=== PATIENT | female | born 1970 | race Two or more races ===

== ENCOUNTER 2020-01-14 08:20 | Outpatient (REF) | payer MEDICAID, SELFPAY | END 2020-01-14 08:21 | disposition home or self-care (01) | LOC: HO.LAB 08:20 | PROVIDERS: Visit Provider Internal Medicine | DX: Z20.828 Contact with and (suspected) exposure to other viral communicable diseases (principal) | CPT/HCPCS: C9803; U0003 ==

== ENCOUNTER 2020-05-30 09:03 | Outpatient (REF) | payer MEDICAID, SELFPAY ==
--- NOTE | ~2020-05-30 | MM_ITS ---
EXAMINATION: MM SCREENING DIGITAL BREAST TOMOSYNTHESIS, BILATERAL CLINICAL INFORMATION: Screening. Asymptomatic. The lifetime risk of breast cancer based on the Tyrer-Cuzick Model is 6%. COMPARISON: Mammography: 08/18/2018, 08/03/2017, 07/15/2016, 02/25/2015 TECHNIQUE: Digital breast tomosynthesis is performed in both the craniocaudal and mediolateral oblique views along with computer-aided detection (CAD). Synthesized 2D images are generated from the tomosynthesis. FINDINGS: The breasts are heterogeneously dense, which may obscure small masses (ACR BI-RADS breast composition Category c). There is no developing density or interval mass or architectural abnormality. Parenchymal pattern is similar to prior exam. The axilla and skin contours are unremarkable. Right breast shows no abnormal calcifications. Left breast has some new punctate calcifications upper outer periareolar, possibly with some associated digital processing artifact. Patient will be recalled for additional imaging. MM/MM tomosynthesis screening BI IMPRESSION: 1. Left: New punctate calcifications upper outer periareolar, possibly with some associated digital processing artifact. 2. Right: No mammographic evidence of malignancy. ASSESSMENT: BI-RADS 0: Incomplete - Need Additional Imaging Evaluation RECOMMENDATION: 1. Additional views of the left breast (magnification CC, magnification ML). 2. Radiology department staff will contact the patient for additional imaging. This patient's information was entered into a reminder system with a target due date for their next mammogram.
== END 2020-05-30 09:04 | disposition home or self-care (01) ==
LOC: HO.MAMMO 09:03
PROVIDERS: PCP Nurse Practitioner Family; Visit Provider Nurse Practitioner Family
DX: Z12.31 Encounter for screening mammogram for malignant neoplasm of breast (principal)
CPT/HCPCS: 77063; 77067

== ENCOUNTER 2020-06-16 10:50 | Outpatient (REF) | payer MEDICAID, SELFPAY ==
--- NOTE | ~2020-06-16 | MM_ITS ---
EXAMINATION: MM DIAGNOSTIC DIGITAL MAMMOGRAPHY, LEFT CLINICAL INFORMATION: Recall from screening for calcifications periareolar upper outer left breast possibly with some associated digital processing artifact. COMPARISON: Mammography: 08/18/2018, 08/03/2017, 07/15/2016, 06/30/2016, 02/25/2015 TECHNIQUE: Digital mammography is performed in the following views: Magnification CC x2, magnification ML x2. FINDINGS: The breasts are heterogeneously dense, which may obscure small masses (ACR BI-RADS breast composition Category c). There are fine calcifications superficial periareolar upper outer left breast. There is suggestion of layering on the ML views. In retrospect, the calcifications are likely without significant change from prior exam 2018 and new from 2D mammography 2015. Results are discussed with the patient at time of visit. Management plan is for short interval six-month follow-up left mammography to include magnification views. MM/MM added views LT IMPRESSION: Calcifications superficial periareolar left breast with suggestion of some layering on the ML view. ASSESSMENT: BI-RADS 3: Probably Benign RECOMMENDATION: Diagnostic left mammography in 6 months. This patient's information was entered into a reminder system with a target due date for their next mammogram.
== END 2020-06-16 10:51 | disposition home or self-care (01) ==
LOC: HO.MAMMO 10:50
PROVIDERS: Visit Provider Nurse Practitioner Family
DX: R92.1 Mammographic calcification found on diagnostic imaging of breast (principal)
CPT/HCPCS: 77065

== ENCOUNTER 2020-12-17 12:47 | Outpatient (REF) | payer MEDICAID, SELFPAY ==
--- NOTE | ~2020-12-17 | MM_ITS ---
EXAMINATION: MM DIAGNOSTIC DIGITAL BREAST TOMOSYNTHESIS, LEFT CLINICAL INFORMATION: Six-month follow-up calcifications. COMPARISON: Mammography: 06/16/2020 and studies dating back to 01/16/2014. TECHNIQUE: Digital breast tomosynthesis is performed in both the craniocaudal and mediolateral oblique views along with computer-aided detection (CAD). Synthesized 2D images are generated from the tomosynthesis. Spot magnification views of the left breast performed in craniocaudal and 90 degree mediolateral views. FINDINGS: The breasts are extremely dense, which lowers the sensitivity of mammography (ACR BI-RADS breast composition Category d). There is a stable appearance of the grouping of calcifications about the anterior aspect of the left breast. No new suspicious abnormal dominant mass identified. No new more suspicious grouping of microcalcifications seen. Recommend 6-month bilateral mammography with magnification views of the left breast. Results are provided to the patient at time of visit by the technologist. MM/MM tomosynthesis diagnostic LT IMPRESSION: There are no significant changes from prior study. ASSESSMENT: BI-RADS 3: Probably Benign. RECOMMENDATION: Diagnostic mammography in 6 months. This patient's information was entered into a reminder system with a target due date for their next mammogram.
== END 2020-12-17 12:48 | disposition home or self-care (01) ==
LOC: HO.MAMMO 12:47
PROVIDERS: Visit Provider Nurse Practitioner Family
DX: R92.1 Mammographic calcification found on diagnostic imaging of breast (principal)
CPT/HCPCS: 77061; 77065

== ENCOUNTER 2021-06-29 14:47 | Outpatient (REF) | payer MEDICAID, SELFPAY ==
--- NOTE | ~2021-06-29 | MM_ITS ---
EXAMINATION: MM DIAGNOSTIC DIGITAL BREAST TOMOSYNTHESIS, BILATERAL CLINICAL INFORMATION: Probable benign periareolar left breast calcifications for follow-up surveillance. Due for yearly. The lifetime risk of breast cancer based on the Tyrer-Cuzick Model is 7%. COMPARISON: Mammography: 12/17/2020, 06/16/2020, 05/30/2020 (BI-RADS 0), 08/18/2018. TECHNIQUE: Digital breast tomosynthesis is performed in both the craniocaudal and mediolateral oblique views along with computer-aided detection (CAD). Synthesized 2D images are generated from the tomosynthesis. Additional magnification CC and magnification ML views are provided. FINDINGS: The breasts are heterogeneously dense, which may obscure small masses (ACR BI-RADS breast composition Category c). There is no developing density or interval mass or architectural abnormality. The axilla and skin contours are unremarkable. No suspicious calcifications on the right. Additional magnification views show loosely grouped calcifications anterior left breast, some possibly vascular. They appear stable to decreased in number. There are no increasing calcifications or ductal distribution. Preliminary results are provided to the patient at time of visit by the technologist. MM/MM tomosynthesis diagnostic BI IMPRESSION: Left: -Left breast calcifications stable to decreased from prior diagnostic exam. Right: -No mammographic evidence of malignancy. ASSESSMENT: BI-RADS 3: Probably Benign RECOMMENDATION: Diagnostic left mammography in 6 months. This patient's information was entered into a reminder system with a target due date for their next mammogram.
== END 2021-06-29 14:48 | disposition home or self-care (01) ==
LOC: HO.MAMMO 14:47
PROVIDERS: PCP Nurse Practitioner Family; Visit Provider Nurse Practitioner Family
DX: R92.1 Mammographic calcification found on diagnostic imaging of breast (principal)
CPT/HCPCS: 77062; 77066

== ENCOUNTER 2021-07-09 09:04 | Outpatient (REF) | payer MEDICAID, SELFPAY ==
--- NOTE | ~2021-07-09 | MM_ITS ---
EXAMINATION: STEREOTACTIC TOMOSYNTHESIS-GUIDED VACUUM-ASSISTED BREAST BIOPSY, LEFT SPECIMEN RADIOGRAPH, LEFT POST PROCEDURE DIGITAL MAMMOGRAM, LEFT CLINICAL INFORMATION: Calcifications 2:30 periareolar outer left breast for tissue sampling. COMPARISON: Mammography 06/29/2021, 12/17/2020. TECHNIQUE/PROCEDURE: Informed consent was obtained from the patient after discussion of the benefits, risks, and alternatives to biopsy today. Patient appeared to understand. Gave opportunity for questions. Patient signed consent form. BIOPSY TABLE: [employer] Aff[employer]one Biopsy System. LESION: Loosely grouped punctate calcifications 2:30 periareolar left breast. LOCAL ANESTHESIA: 10 mL carbonated 1% lidocaine; 10 mL 1% lidocaine with epinephrine. DERMATOTOMY: Single skin ketty dermatotomy performed. NEEDLE: Vozeemeiva 9-gauge vacuum assisted core biopsy device. APPROACH: Craniocaudal. TARGETING: Combination of digital breast tomosynthesis and stereotactic digital mammography used for targeting. CORES: 13. CLIP: Open [employer] T-shaped marker. SPECIMEN RADIOGRAPH: Specimen radiograph is taken in separate room using digital mammography. The index calcifications are in the excised cores. There are at least 7 calcifications in the cores. POST PROCEDURE UNILATERAL DIGITAL MAMMOGRAM: The post biopsy mammogram is performed in separate room using separate digital mammography equipment from the biopsy procedure. CC and ML views are obtained. The breasts are heterogeneously dense, which may obscure small masses (breast composition category: c). The clip marker is in position. The calcifications are decreased at the biopsy site consistent with the sampling. No gross hematoma. The patient tolerated the procedure well. No immediate complications. Home instructions reviewed with the patient. Final pathology results are pending. MM/MM stereotactic biopsy LT IMPRESSION: 1. Digital tomosynthesis-guided core biopsy left breast with clip placement. 2. Specimen radiograph taken and post procedure mammogram. There is satisfactory positioning of the biopsy clip. 3. Final pathology results pending. An addendum report will be issued.
[2021-07-09] MEDS: Sodium Bicarbonate 8.4% 50 MEQ/50 ML VIAL SUBCUT (10:56)
[2021-07-09] MEDS: Lidocaine HCl 1 % 20 ML VIAL 9 ML SUBCUT (11:01)
== END 2021-07-09 09:05 | disposition home or self-care (01) ==
LOC: HO.MAMMO 09:04
PROVIDERS: PCP Nurse Practitioner Family; Visit Provider Surgery
DX: R92.8 Other abnormal and inconclusive findings on diagnostic imaging of breast (principal)
CPT/HCPCS: 19081; 88305; 99202; A4648

== ENCOUNTER → 2021-07-14 09:12 | Outpatient (BNVA) | payer MEDICAID, SELFPAY | PROVIDERS: PCP Nurse Practitioner Family; Visit Provider Surgery | DX: R92.8 Other abnormal and inconclusive findings on diagnostic imaging of breast (principal) | CPT/HCPCS: 99212 ==

== ENCOUNTER 2022-08-05 09:59 | Outpatient (REF) | payer OTHER, SELFPAY ==
--- NOTE | ~2022-08-05 | MM_ITS ---
EXAMINATION: MM SCREENING DIGITAL BREAST TOMOSYNTHESIS, BILATERAL CLINICAL INFORMATION: Screening. Asymptomatic. The lifetime risk of breast cancer based on the Tyrer-Cuzick Model is 6.1%. COMPARISON: Mammography: This study is compared with multiple prior mammograms dating back to May 2020. TECHNIQUE: Digital breast tomosynthesis is performed in both the craniocaudal and mediolateral oblique views along with computer-aided detection (CAD). Synthesized 2D images are generated from the tomosynthesis. FINDINGS: The breasts are heterogeneously dense, which may obscure small masses (ACR BI-RADS breast composition Category c). There are no significant masses, abnormal calcifications, or other abnormalities. There is a tissue marker in the periareolar region of the left breast from prior benign percutaneous biopsy of grouped calcifications. MM/MM tomosynthesis screening BI IMPRESSION: No mammographic evidence of malignancy. ASSESSMENT: BI-RADS BI-RADS 2 - Benign Findings RECOMMENDATION: Routine annual mammography screening. 1 year F/U This patient's information was entered into a reminder system with a target due date for their next mammogram.
== END 2022-08-05 10:00 | disposition home or self-care (01) ==
LOC: HO.MAMMO 09:59
PROVIDERS: PCP Nurse Practitioner Family; Visit Provider Nurse Practitioner Family
DX: Z12.31 Encounter for screening mammogram for malignant neoplasm of breast (principal)
CPT/HCPCS: 77063; 77067

== ENCOUNTER → 2022-08-05 10:15 | Outpatient (BNV) | payer OTHER, SELFPAY | PROVIDERS: PCP Nurse Practitioner Family; Visit Provider Radiology Diagnostic Radiology | DX: Z12.31 Encounter for screening mammogram for malignant neoplasm of breast (principal) | CPT/HCPCS: 77063; 77067 ==

== ENCOUNTER 2023-01-20 11:58 | Emergency (ER) | payer OTHER, SELFPAY ==
[2023-01-20 12:11] VITALS: BP 156/80; PULSE 98; RESP 20; TEMP 36.9; O2SAT 99; BMI 32.9
--- NOTE | 2023-01-20 12:11 | ED.GENADULT ---
HPI - General Adult General Chief complaint: Upper Respiratory Symptoms Stated complaint: Fever, headache, chills Time Seen by Provider: 01/20/23 15:05 History of Present Illness HPI narrative: Patient is a 53-year-old female with history of asthma and SHANNA presenting to the ED with complaint of chills, body aches, congestion since yesterday. Had to call out of work due to symptoms. Low grade temps (99). Denies any abdominal pain, nausea, vomiting, or diarrhea. MD complaint: chills, body aches Onset (ago): day(s) Severity: moderate Quality: aching Pain Consistency: constant Associated symptoms: fever/chills and malaise Treatments prior to arrival: none Related Data Home Medications Medication Instructions Recorded Confirmed albuterol sulfate 90 mcg/actuation 2 puff inhalation TID 07/09/21 07/14/21 aerosol inhaler (ProAir HFA) famotidine 20 mg tablet 20 mg PO BID 07/09/21 07/09/21 fluticasone propionate 110 1 puff PO BID 07/09/21 07/09/21 mcg/actuation HFA aerosol inhaler (Flovent HFA) ibuprofen 800 mg tablet 800 mg PO TID 07/09/21 07/09/21 Previous Rx's Medication Instructions Recorded nirmatrelvir 300 mg (150 mg See Rx Instructions PO .COMPLEX 01/20/23 x2)-ritonavir 100 mg tablet,dose #30 ea pack (Paxlovid) Allergies Allergy/AdvReac Type Severity Reaction Status Date / Time No Known Allergies Allergy Unverified 07/09/21 08:40 Review of Systems Review of Systems: As per HPI. Yes all other systems are reviewed and are negative Constitutional: Constitutional: Reports as per HPI [facility] Past Medical History Surgical History History of 3 sections Social History Social History Alcohol intake: current Patient Tobacco Use Status: Current everyday Tobacco user Physical Exam ED Vital Signs: Vital Signs - 24 hr 01/20/23 12:11 Temperature 98.4 F Pulse Rate 98 Respiratory Rate 20 Blood Pressure 156/80 H Pulse Oximetry 99 Oxygen Delivery Method Room Air BMI result Body Mass Index 32.9 Vital signs have been reviewed and appear to be correct. Blood pressure elevated. Heart rate normal. Respiratory rate normal. Temperature normal. Oxygen saturation normal. Const General: cooperative, healthy appearing and no acute distress Orientation/consciousness: oriented to person, oriented to place, oriented to time and patient oriented x3 Limitations: no limitations HENMT Head: Yes normocephalic and Yes atraumatic Ears: external ears normal General nose exam: Normal external nose present Face and sinus: Yes face symmetric Mouth: oropharynx normal and moist mucous membranes Throat: Yes uvula midline Eyes Pupils: Equal, round and reactive pupils present Neck Neck: Yes normal visual inspection and Yes supple Resp Effort & Inspection: normal respiratory effort and able to speak in complete sentences Auscultation: clear to auscultation bilaterally Cardio Rate: regular rate Rhythm: regular rhythm Heart sounds: S1 normal heart sound present and S2 normal heart sound present GI Palpation (GI): Soft to palpation and nontender Auscultation: normoactive bowel sounds General: Yes no CVA tenderness Back/Spine/Pelvis Back: no CVA tenderness Skin General skin exam: elasticity normal and turgor normal Neuro General: oriented to person, oriented to place, oriented to time, patient oriented x3, moves all extremities, no focal motor deficits and CN's II-XI intact bilaterally Cranial nerves: Yes Equal, round and reactive pupils present Cognition (Neuro): normal cognition Extrem General: Yes full ROM, Yes no pedal edema and Yes no calf tenderness Psych Mental Status: mental status grossly normal Affect: normal affect Thought process: Normal thought process present Medical Decision Making Medical Decision Making MDM Narrative: Patient is a 53-year-old female with history of asthma and SHANNA presenting to the ED with complaint of chills, body aches, congestion since yesterday. On exam patient is awake, A+Ox3, VS WNL, afebrile, normal neurological exam without focal deficits, physical exam findings as above. Given reported symptoms and physical exam findings, initial differential includes viral illness, covid, flu. Covid swab positive, patient updated on results. Patient offered treatment with Paxlovid which patient is agreeable to. Discussed adverse effects with patient. Advised patient to ensure adequate rest and fluid intake, alternate Tylenol and ibuprofen. Instructed patient to follow up with PCP. Return precautions discussed. Patient verbalized understanding of and agreement with plan. Differential Diagnosis Differential Diagnoses: The differential diagnosis associated with the presentation includes As per [facility] Lab Data [facility] Lab Attestation statement: I reviewed the patient's lab results. Positive Covid Labs: Lab Results 01/20/23 Range/Units 14:15 COVID-19 (YANICK) Positive A (Negative) COVID-19 Clin Com See Note Influenza Type A (ANAYELI) Negative (Negative) Influenza Type B (ANAYELI) Negative (Negative) Influenza A & B Note See Note External Record Review External record reviewed: Inpatient record, Office record and Outpatient record Prescription Management I considered prescription management with: Antiviral Discharge Plan Discharge Clinical Impression: COVID-19 Patient Disposition: Home, Self-Care Instructions: Covid-19 Viral Syndrome and Novel Coronavirus (ED) Hey/Ath, COVID-19 (Coronavirus Disease 2019) (ED) Additional Instructions: You were evaluated in the emergency department today for body aches, fever. Your COVID test was resulted as positive. You should continue to isolate at home for another 4 days. You should continue to wear mask for 5 days after that. You are being treated with Paxlovid which may cause nausea and vomiting. Be sure to get plenty of rest and drink plenty of fluids. Return to the emergency department with worsening shortness of breath, chest pain, fever that does not improve with Tylenol or ibuprofen, persistent vomiting, or any other concerning symptoms. You should follow-up with your primary care provider. Prescriptions: New Paxlovid 300 mg (150 mg x 2)-100 mg tablets,dose pack See Rx Instructions .ROUTE .COMPLEX Qty: 30 0RF Rx Instructions: take TWO 150 mg tablets of nirmatrelvir with ONE 100 mg tablet of ritonavir twice daily for 5 days No Action albuterol sulfate [ProAir HFA] 90 mcg/actuation HFA aerosol inhaler 2 puff inhalation TID ibuprofen 800 mg tablet 800 mg PO TID Flovent HFA 110 mcg/actuation HFA aerosol inhaler 1 puff PO BID famotidine 20 mg tablet 20 mg PO BID Stand Alone Forms: Work/School Release
[2023-01-20 14:39] LABS: COVID-19 Test Positive (Negative); IDNOW Serial# 08D9AD1C
[2023-01-20 14:47] LABS: IDNOW Serial# 9DB6401D; Influenza A Negative (Negative); Influenza B2 Negative (Negative)
== END 2023-01-20 15:14 | disposition home or self-care (01) ==
PROVIDERS: Registered Nurse Emergency; Emergency Provider Student in an Organized Health Care Education/Training Program; PCP Nurse Practitioner Family
DX: R50.9 Fever, unspecified (principal); Z79.899 Other long term (current) drug therapy; Z11.52 Encounter for screening for COVID-19; Z20.822 Contact with and (suspected) exposure to COVID-19
CPT/HCPCS: 87502; 87635; 99282; 99283

== ENCOUNTER 2023-05-18 13:26 | Emergency (ER) | payer OTHER, SELFPAY ==
--- NOTE | ~2023-05-18 | CT_ITS ---
EXAMINATION: CT ABDOMEN AND PELVIS WITHOUT CONTRAST CLINICAL INFORMATION: Right flank pain. Query stone. COMPARISON: None available. TECHNIQUE: Multidetector volumetric imaging was performed from the superior aspect of the liver through the pubic symphysis. Sagittal and coronal reformatted images were obtained on the technologist's workstation. This CT examination was performed using dose optimization techniques as appropriate, variously including the following: *Automated exposure control *Adjustment of mA and/or kV according to patient size (this includes techniques or standardized protocols for targeted exams where dose is matched to indication/reason for exam; i.e. extremities or head) *Use of iterative reconstruction technique DLP: 409 mGy-cm FINDINGS: LUNG BASES: The visualized lung bases are unremarkable. LIVER, GALLBLADDER, AND BILIARY TREE: The liver is normal in size, shape, and attenuation. No focal hepatic lesion or biliary ductal dilatation is present. The gallbladder is unremarkable with no evidence of radiopaque gallstones, gallbladder wall thickening, or obvious pericholecystic inflammatory changes. PANCREAS: Unremarkable. SPLEEN: Unremarkable. ADRENAL GLANDS: Unremarkable. KIDNEYS AND URETERS: The kidneys are normal in size, shape, and attenuation. No hydronephrosis, hydroureter, or calculi seen. No perinephric stranding. BLADDER: Unremarkable. GASTROINTESTINAL TRACT: The small bowel and colon are normal in caliber. There is no pericolonic inflammatory stranding. The appendix is normal in appearance. There is no free fluid within the abdomen or pelvis. ABDOMINAL WALL: There is a small fat-containing umbilical hernia. LYMPH NODES: No lymphadenopathy. VASCULAR: No abdominal aortic aneurysm. PELVIC VISCERA: Unremarkable. No adnexal mass. OSSEOUS STRUCTURES: There is 3.6 mm of anterolisthesis of L5 in relation to S1 secondary to bilateral pars defects at L5. Vertebral body heights are maintained. CT/CT abdomen pelvis wo IV con IMPRESSION: The kidneys are normal in size, shape, and attenuation. No hydronephrosis, hydroureter, or calculi seen. No perinephric stranding. The appendix is normal in appearance. Fleischner guidelines were followed.
--- NOTE | ~2023-05-18 | XR_ITS ---
EXAMINATION: CR Xr Thoracic Spine 2v CR Xr Lumbar Spine 2-3v CLINICAL INFORMATION: right paraspinal pain COMPARISON: Chest radiograph 02/06/2017 TECHNIQUE: AP, lateral and swimmer's view of the thoracic spine, 3 images. AP, lateral and lumbosacral views of the lumbar spine, 3 images. FINDINGS: Thoracic spine: Mild degenerative disc disease in the thoracic spine is characterized by endplate osteophytes and mild loss of intervertebral disc heights. Vertebral body heights are normal. No fracture or spondylolisthesis. Paraspinal soft tissues are normal. Lumbar spine: Grade 1 anterolisthesis of L5 on S1 with bilateral L5 pars defects. Mild L5-S1 degenerative disc disease with subchondral sclerosis, osteophytosis and intervertebral disc height loss. Otherwise, disc heights are maintained. Vertebral body heights are normal. Bone mineralization is normal. Soft tissues are unremarkable. Imaged portions of the sacroiliac joints are normal. XR/XR thoracic spine 2V IMPRESSION: 1. Grade 1 anterolisthesis of L5 on S1 with bilateral L5 pars defects. 2. Mild L5-S1 degenerative disc disease. 3. No acute fracture or malalignment of the thoracic spine.
--- NOTE | ~2023-05-18 | XR_ITS ---
EXAMINATION: CR Xr Thoracic Spine 2v CR Xr Lumbar Spine 2-3v CLINICAL INFORMATION: right paraspinal pain COMPARISON: Chest radiograph 02/06/2017 TECHNIQUE: AP, lateral and swimmer's view of the thoracic spine, 3 images. AP, lateral and lumbosacral views of the lumbar spine, 3 images. FINDINGS: Thoracic spine: Mild degenerative disc disease in the thoracic spine is characterized by endplate osteophytes and mild loss of intervertebral disc heights. Vertebral body heights are normal. No fracture or spondylolisthesis. Paraspinal soft tissues are normal. Lumbar spine: Grade 1 anterolisthesis of L5 on S1 with bilateral L5 pars defects. Mild L5-S1 degenerative disc disease with subchondral sclerosis, osteophytosis and intervertebral disc height loss. Otherwise, disc heights are maintained. Vertebral body heights are normal. Bone mineralization is normal. Soft tissues are unremarkable. Imaged portions of the sacroiliac joints are normal. XR/XR lumbar spine 2-3V IMPRESSION: 1. Grade 1 anterolisthesis of L5 on S1 with bilateral L5 pars defects. 2. Mild L5-S1 degenerative disc disease. 3. No acute fracture or malalignment of the thoracic spine.
[2023-05-18 14:35] VITALS: BP 191/102; PULSE 83; RESP 18; TEMP 36.9; O2SAT 98; BMI 32.5
--- NOTE | 2023-05-18 14:36 | ED.GENADULT ---
HPI - General Adult General Chief complaint: Back Pain/Injury Stated complaint: back pain Time Seen by Provider: 05/19/23 00:24 History of Present Illness HPI narrative: 53-year-old female who presents emergency department for evaluation of right midthoracic back pain. The patient states that 2 days prior she lifted her grandson in the afternoon and may have had some mild pain in her back. She states that in the morning at 04:00 hours yesterday she developed sudden onset of right mid back pain. She describes the pain is a constant sharp pain which is not worse with movement. She states the pain is 10/10. She took ibuprofen without relief for the pain. The patient states she has had similar back pain in the past and took cyclobenzaprine and pain medications for it with improvement of her symptoms. The patient denied fever, chills, rhinorrhea, nausea, vomiting, diarrhea, frequency, urgency or dysuria. Related Data Home Medications ?Medication ?Instructions ?Recorded ?Confirmed albuterol sulfate 90 mcg/actuation 2 puff inhalation TID 07/09/21 07/14/21 aerosol inhaler (ProAir HFA) famotidine 20 mg tablet 20 mg PO BID 07/09/21 07/09/21 fluticasone propionate 110 1 puff PO BID 07/09/21 07/09/21 mcg/actuation HFA aerosol inhaler (Flovent HFA) ibuprofen 800 mg tablet 800 mg PO TID 07/09/21 07/09/21 Previous Rx's ?Medication ?Instructions ?Recorded nirmatrelvir 300 mg (150 mg See Rx Instructions PO .COMPLEX 01/20/23 x2)-ritonavir 100 mg tablet,dose #30 ea pack (Paxlovid) cyclobenzaprine 10 mg tablet 10 mg PO TID PRN pain, muscle 05/19/23 spasm #15 tabs oxycodone 5 mg tablet 5 mg PO Q6H PRN pain #10 tabs 05/19/23 Allergies Allergy/AdvReac Type Severity Reaction Status Date / Time No Known Allergies Allergy Verified 05/18/23 14:38 Review of Systems Review of Systems: Yes all other systems are reviewed and are negative [facility] Past Medical History [facility] Narrative: Past medical history: None. Social history: She does smoke cigarettes. She occasionally drinks alcohol. She denies drug use. Surgical History History of 3 sections Social History Social History Alcohol intake: current Patient Tobacco Use Status: Current everyday Tobacco user Advance Directives: No Advance Directives Information Provided: No Physical Exam ED Vital Signs: Vital Signs - 24 hr 05/18/23 14:35 05/18/23 17:49 05/19/23 00:19 Temperature 98.4 F 98.1 F 97.7 F Pulse Rate 83 90 76 Respiratory Rate 18 16 14 Blood Pressure 191/102 H 179/73 H 152/51 H Pulse Oximetry 98 99 100 Oxygen Delivery Method Room Air Room Air Room Air BMI result Body Mass Index 32.5 Vital signs revealed an elevated blood pressure of 191/102 otherwise unremarkable. This elevation is most likely caused by her 10/10 back pain. Exam: General: Awake, alert in no distress Head: Normocephalic, atraumatic EENT: PERRL, Lids normal, sclera normal, conjunctiva normal, nose normal , ears normal, throat without erythema or exudates Neck: Supple, no adenopathy Lung: breath sounds symmetric, no wheezing, rales or rhonchi Chest: symmetric movement, nontender Heart: regular rate and rhythm, normal S1, S2 no murmurs or rubs Abdomen: soft, non-tender, nondistended, normal bowel sounds Back: Patient has no point tenderness palpation of her vertebrae. She does have tenderness palpation of the midthoracic paraspinal muscles with spasm of these muscles, she is negative straight leg raises bilaterally. Extremities: no deformities, moves all extremities symmetrically Neuro: Awake, alert, oriented, normal speech, cranial nerves intact, moves all extremities symmetrically Psych: Pleasant, cooperative Course Course Course Narrative: RME:?53 yo female here for eval of right flank pain that woke her from her sleep at 0400 this morning. admits to lifting up her grandson yesterday however did not have pain at that time. took motrin at 0900 this morning w/o relief. denies dysuria, hematuria, bowel/bladder incontinence or retention, saddle anesthesia. No history of spinal surgeries. No history of IV drug use. No history of renal stones. labs, UA, xrays ordered. Full HPI, ROS and PE to be performed by the primary ED provider. Medications Administered Discontinued Medications Generic Name Dose Route Start Last Admin Trade Name Ez PRN Reason Stop Dose Admin Ibuprofen 600 mg 05/18/23 17:53 05/18/23 17:55 Ibuprofen 600 Mg Tablet PO 05/18/23 17:54 600 mg ONCE ONE Administration Medical Decision Making Medical Decision Making [facility] Narrative: 53-year-old female with no significant past medical history presents emergency department for evaluation of 2 days of midthoracic back pain which is 10/10 and not relieved by ibuprofen. Patient's vital signs did reveal an elevated blood pressure but this is most likely caused by her pain which is 10/10. The patient's exam did reveal mid thoracic paraspinal muscle tenderness and spasm in the mid right thoracic back. There has no point tenderness palpation over the vertebrae. She had negative straight leg raises bilaterally. Differential diagnosis: ?Includes but is not limited to renal colic ureteral colic, ureteral stone, musculoskeletal injury, musculoskeletal spasm, disc disease, arthritis Following evaluation was ordered: CBC, CMP, urinalysis, CT scan abdomen pelvis without IV contrast, x-rays thoracic spine, x-rays lumbar spine Patient was initially treated with the following:Ibuprofen 400 mg orally, cyclobenzaprine 10 mg orally and oxycodone 5 mg orally Course: 01:38 My interpretation patient's laboratory evaluation is as follows: CBC was normal. CMP was normal. Urinalysis was positive blood. Microscopic revealed 3-5 WBCs, 0-5 RBCs, 6-10 squamous cells and 1+ bacteria-this is a non clean catch specimen. CT scan of the abdomen pelvis without IV contrast did not reveal any clear cause for her right midthoracic pain. X-rays of the thoracic and lumbar sacral spine did reveal arthritis and disc disease. The patient did have lumbar anteriorly listhesis at L5-S1 but I do not think that these x-ray findings are related to her symptoms. Patient's presentation, laboratory findings and radiology findings suggest that the patient's symptoms are more consistent with musculoskeletal injury with spasm of the paraspinal muscles in the right midthoracic region of her back. Patient was advised to take ibuprofen and Tylenol and for pain not relieved by these medications she was prescribed oxycodone 5 mg every 6 hours as needed for pain. She also given a prescription for cyclobenzaprine 10 mg 3 times a day as needed for pain and spasm. She was given printed and verbal instructions and a work note. Admission/Observation Consideration of admission/observation: Escalation of care including admission/observation considered Lab Data MDM Lab Attestation statement: I reviewed the patient's lab results. 05/18/23 15:35 05/18/23 15:35 Labs: Lab Results 05/18/23 05/18/23 Range/Units 15:35 17:58 WBC 9.4 (4.8-10.8) X10*3/uL RBC 4.36 (4.20-5.50) X10*6/uL Hgb 12.4 (12.0-16.0) g/dl Hct 37.4 (37.0-47.0) % MCV 85.8 (80.0-98.0) fL MCH 28.4 (27.0-33.0) pg MCHC 33.2 (31.0-35.0) g/dl RDW 12.5 (11.0-16.0) % Plt Count 220 (160-400) X10*3/uL MPV 10.7 (9.4-12.3) fL Immature Gran % (Auto) 0.2 (0.0-0.4) % Neut % (Auto) 52.2 (45-73) % Lymph % (Auto) 35.0 (20-40) % [place] % (Auto) 7.4 (2-11) % Eos % (Auto) 4.7 H (0-4) % Baso % (Auto) 0.5 (0-2) % Lymph # (Auto) 3.3 (1.2-4.9) X10*3/uL [place] # (Auto) 0.7 (0.1-1.2) X10*3/uL Eos # (Auto) 0.4 (0.0-0.4) X10*3/uL Baso # (Auto) 0.1 (0.0-0.2) X10*3/uL Abs Immat Gran (auto) 0.02 (0.00-0.03) X10*3/uL Absolute Neuts (auto) 4.9 (2.0-8.3) x10*3/uL Absolute Nucleated RBC 0.000 (0.0-0.012) X10*3/uL Nucleated RBC % (auto) 0.0 (0.0-0.2) /100WBC Sodium 140 (135-145) mmol/L Potassium 4.1 (3.3-5.1) mmol/L Chloride 110 H (96-108) mmol/L Carbon Dioxide 22 (22-29) mmol/L Anion Gap 12 (12-20) BUN 10 (9-16) mg/dL Creatinine 0.69 (0.5-1.4) mg/dL Estim Creat Clear Calc 76.7 Estimated GFR > 60 Random Glucose 97 (60-115) mg/dL Calcium 8.7 (8.4-10.2) mg/dL Total Bilirubin 0.6 (0.0-1.0) mg/dL AST 20 (5-31) U/L ALT 21 (0-31) U/L Alkaline Phosphatase 71 (39-117) U/L Total Protein 7.7 (6.5-8.0) g/dL Albumin 4.1 (3.5-5.0) g/dL Urine Color Yellow Urine Appearance Clear Urine pH 6.0 (5.0-9.0) Ur Specific Miller 1.020 (1.005-1.025) Urine Protein Negative (Neg-Trace) mg/dL Urine Glucose (UA) Negative (Negative) mg/dL Urine Ketones Negative (Negative) mg/dL Urine Blood Trace H (Negative) Urine Nitrite Negative (Negative) Ur Leukocyte Esterase Negative (Negative) Urine RBC 3-5 H (0-2) /HPF Urine WBC 0-5 (0-5) /HPF Ur Squamous Epith Cells 6-10 (0-2) /HPF Urine Bacteria 1+ (None Seen) Hyaline Casts 0-2 (0-2) /LPF Radiology Impression Discussion of test interpretation with radiology: I have reviewed the radiologist's reading. Radiologist Impression: CT abdomen pelvis wo IV con IMPRESSION: The kidneys are normal in size, shape, and attenuation. No hydronephrosis, hydroureter, or calculi seen. No perinephric stranding. The appendix is normal in appearance. Fleischner guidelines were followed. Dictated By: Perry Marino Jr DO XR thoracic and lumbar spine 2V CLINICAL INFORMATION: right paraspinal pain COMPARISON: Chest radiograph 02/06/2017 FINDINGS: Thoracic spine: Mild degenerative disc disease in the thoracic spine is characterized by endplate osteophytes and mild loss of intervertebral disc heights. Vertebral body heights are normal. No fracture or spondylolisthesis. Paraspinal soft tissues are normal. Lumbar spine: Grade 1 anterolisthesis of L5 on S1 with bilateral L5 pars defects. Mild L5-S1 degenerative disc disease with subchondral sclerosis, osteophytosis and intervertebral disc height loss. Otherwise, disc heights are maintained. Vertebral body heights are normal. Bone mineralization is normal. Soft tissues are unremarkable. Imaged portions of the sacroiliac joints are normal. IMPRESSION: 1. Grade 1 anterolisthesis of L5 on S1 with bilateral L5 pars defects. 2. Mild L5-S1 degenerative disc disease. 3. No acute fracture or malalignment of the thoracic spine. Dictated By: Criselda Sprague Prescription Management I considered prescription management with: Pain Medication (Oxycodone) and Other (Antispasmodic medications-cyclobenzaprine) Discharge Plan Discharge Clinical Impression: Thoracic back sprain Patient Disposition: Home, Self-Care Instructions: Back Pain (ED) Additional Instructions: Your blood work was normal. The CT scan of your abdomen pelvis did not reveal any clear cause for your back pain, there were no kidney stones noted by the radiologist. The x-rays of your thoracic and lumbar spine did reveal arthritis and this disease but this is not the cause of your pain. The radiology impression is below in you can review this with your doctor. Your exam and symptoms are consistent with muscle strain of your mid back (thoracic back) most likely caused by your picking up your grandson. Take ibuprofen 200 mg pills, 3 pills every 6 hours as needed for pain. Take Tylenol (acetaminophen) 500 mg pills, 2 pills every 4-6 hours as needed for pain. For pain not relieved by ibuprofen or Tylenol take oxycodone 5 mg pills, 1 pill every 4 hours as needed for pain. Do not drive or work while taking this medication since they can cause sleepiness. Oxycodone is a narcotic medication that can be addicting. If you are concerned about addiction you can ask the pharmacist for less pills or do not get this prescription filled Take Flexeril (cyclobenzaprine) 10 mg pills, 1 pill every 6-8 hours as needed for pain or spasm. ?This medication will make you sleepy. ?Do not drive or work while taking this medication. Apply ice for 15 minutes 4 to 6 times a day to the area that hurts, do this for 3-4 days. Follow-up with your doctor in 2 days. Please return to the emergency department if your symptoms get worse or if you develop any symptoms that are concerning to you. Please see the work note. Prescriptions: New cyclobenzaprine 10 mg tablet 10 mg PO TID PRN (Reason: pain, muscle spasm) Qty: 15 0RF oxycodone 5 mg tablet 5 mg PO Q6H PRN (Reason: pain) Qty: 10 0RF Rx Instructions: Patient may request partial refill; Partial Fill upon patient request. No Action Paxlovid 300 mg (150 mg x 2)-100 mg tablets,dose pack See Rx Instructions .ROUTE .COMPLEX Qty: 30 0RF Rx Instructions: take TWO 150 mg tablets of nirmatrelvir with ONE 100 mg tablet of ritonavir twice daily for 5 days albuterol sulfate [ProAir HFA] 90 mcg/actuation HFA aerosol inhaler 2 puff inhalation TID ibuprofen 800 mg tablet 800 mg PO TID Flovent HFA 110 mcg/actuation HFA aerosol inhaler 1 puff PO BID famotidine 20 mg tablet 20 mg PO BID Stand Alone Forms: Work/School Release Print Language: Thai
[2023-05-18 15:38] LABS: MANUAL DIFF FLAG NO
[2023-05-18 15:41] LABS: Basophils Absolute Auto 0.1 X10*3/uL (0.0-0.2); Basophils Percent Auto 0.5 % (0-2); Eosinophils Absolute Auto 0.4 X10*3/uL (0.0-0.4); Eosinophils Percent Auto 4.7 % (0-4); Hematocrit 37.4 % (37.0-47.0); Hemoglobin 12.4 g/dl (12.0-16.0); Imm Gran Abs Auto 0.02 X10*3/uL (0.00-0.03); Imm Gran Pct Auto 0.2 % (0.0-0.4); Lymphocytes Absolute Auto 3.3 X10*3/uL (1.2-4.9); Mean Corpuscular HGB Conc 33.2 g/dl (31.0-35.0); Mean Corpuscular Hemoglobin 28.4 pg (27.0-33.0); Mean Corpuscular Volume 85.8 fL (80.0-98.0); Mean Platelet Volume 10.7 fL (9.4-12.3); Monocytes Absolute Auto 0.7 X10*3/uL (0.1-1.2); Monocytes Percent Auto 7.4 % (2-11); Neutrophils Absolute Auto 4.9 x10*3/uL (2.0-8.3); Neutrophils Percent Auto 52.2 % (45-73); Platelet Count 220 X10*3/uL (160-400); Red Blood Count 4.36 X10*6/uL (4.20-5.50); Red Cell Distribution Width 12.5 % (11.0-16.0); White Blood Count 9.4 X10*3/uL (4.8-10.8)
[2023-05-18 16:46] LABS: Alanine Aminotransferase 21 U/L (0-31); Albumin Level 4.1 g/dL (3.5-5.0); Alkaline Phosphatase 71 U/L (39-117); Anion Gap 12 (12-20); Aspartate Amino Transferase 20 U/L (5-31); Bilirubin Total 0.6 mg/dL (0.0-1.0); Blood Urea Nitrogen 10 mg/dL (9-16); Calcium 8.7 mg/dL (8.4-10.2); Carbon Dioxide 22 mmol/L (22-29); Chloride 110 mmol/L (96-108); Creatinine Clr Calc Pharmacy 76.7; Estimated Glomerular Filt Rate > 60; Glucose Random 97 mg/dL (60-115); Potassium 4.1 mmol/L (3.3-5.1); Sodium 140 mmol/L (135-145); Total Protein 7.7 g/dL (6.5-8.0)
[2023-05-18 17:49] VITALS: BP 179/73; PULSE 90; RESP 16; TEMP 36.7; O2SAT 99
[2023-05-18] MEDS: Ibuprofen 600 MG TABLET PO (17:55)
[2023-05-18 18:04] LABS: Appearance Urine Clear; Color Urine Yellow; Glucose Urine UA Negative (Negative); Leukocyte Esterase Urine Negative (Negative); Nitrite Urine Negative (Negative); UMIC TRIGGER UACC YES; Urine Blood Trace (Negative); Urine Ketones Negative (Negative); Urine Protein Negative (Neg-Trace)
[2023-05-18 18:06] LABS: Bacteria Urine 1+ (None Seen); Hyaline Casts Urine 0-2 /LPF (0-2); WBC Urine 0-5 /HPF (0-5)
[2023-05-19 00:19] VITALS: BP 152/51; PULSE 76; RESP 14; TEMP 36.5; O2SAT 100
[2023-05-19] MEDS: oxyCODONE HCl Immed Release 5 MG TABLET PO (01:52)
[2023-05-19] MEDS: Cyclobenzaprine HCl 10 MG TABLET PO (01:52)
[2023-05-19 01:55] VITALS: BP 177/65; PULSE 75; RESP 18; TEMP 36.7; O2SAT 97
== END 2023-05-19 02:00 | disposition home or self-care (01) ==
PROVIDERS: Physician Assistant Medical; Emergency Provider Emergency Medicine Emergency Medical Services
DX: S23.3XXA Sprain of ligaments of thoracic spine, initial encounter (principal); M54.50 Low back pain, unspecified; R10.2 Pelvic and perineal pain; X50.0XXA Overexertion from strenuous movement or load, initial encounter; Y93.9 Activity, unspecified; Y92.9 Unspecified place or not applicable; Y99.8 Other external cause status; Z79.899 Other long term (current) drug therapy
CPT/HCPCS: 36415; 72070; 72100; 74176; 80053; 81001; 85025; 99283; 99284

== ENCOUNTER 2023-12-13 16:50 | Outpatient (REF) | payer OTHER, SELFPAY ==
--- NOTE | ~2023-12-13 | MR_ITS ---
EXAMINATION: MR CERVICAL SPINE WITHOUT CONTRAST CLINICAL INFORMATION: Radiculopathy. COMPARISON: None available. Correlated to x-ray dated April 25, 2014. TECHNIQUE: MRI of the cervical spine was obtained using routine sequences without contrast. FINDINGS: Craniocervical junction is intact. No bone marrow STIR signal abnormality. Multilevel marginal osteophyte formation and disc desiccation, C4 C7. Grade 1 anterolisthesis, C3-4 and T1-2. Grade 1 retrolisthesis, C4-5 and C5-6. Reverse curvature apex at C4-5. Cervical spinal cord signal is normal. C2-3: No cord compression. No neuroforamina stenosis. No disc herniation. C3-4: [Disc osteophyte complex formation resulting in the left neuroforamina narrowing. No cord compression. C4-5: Broad-based disc osteophyte complex formation. Ventral deformity of the thecal sac and flattening deformity of the spinal cord. No cord signal abnormality. Bilateral neuroforamina narrowing on a degenerative basis. C5-6: Broad-based disc osteophyte complex formation resulting in ventral deformity of the thecal sac. No cord signal abnormality. Bilateral neuroforamina narrowing on a degenerative basis. C6-7: Left-sided disc osteophyte complex formation resulting in left neuroforamina narrowing. No cord compression. C7-T1: No disc herniation. No neuroforamina stenosis. No prevertebral compartment hematoma, mass or fluid collection. Flow-void signal within the main vessels is normal. Codominant vertebral arteries. Hyperintense T2 signal in the right mastoid air cells tip MR/MR cervical spine wo con IMPRESSION: Multilevel cervical spondylosis, C4 C7 resulting in central spinal canal stenosis at C4-5 and to a lesser extent C5-6 without cord compression, edema and or myelopathy. Electronically signed by: Anmol Sepulveda MD 12/14/2023 08:08 AM EST
== END 2023-12-13 16:51 | disposition home or self-care (01) ==
LOC: HO.MRI 16:50
PROVIDERS: PCP Physician Assistant Surgical; Visit Provider Physician Assistant Surgical
DX: M54.12 Radiculopathy, cervical region (principal)
CPT/HCPCS: 72141

== ENCOUNTER → 2023-12-13 17:17 | Outpatient (BNV) | payer OTHER, SELFPAY | PROVIDERS: PCP Physician Assistant Surgical; Visit Provider Radiology Diagnostic Radiology | DX: M47.892 Other spondylosis, cervical region (principal) | CPT/HCPCS: 72141 ==

== ENCOUNTER 2024-04-12 09:34 | Outpatient (REF) | payer OTHER, SELFPAY ==
--- NOTE | ~2024-04-12 | XR_ITS ---
EXAMINATION: XR LUMBOSACRAL SPINE CLINICAL INFORMATION: low back pain COMPARISON: May 18, 2023. TECHNIQUE: Three views of the lumbosacral spine. FINDINGS: Grade 1 anterolisthesis L5-S1. Endplate sclerosis and decreased intervertebral disc height, L5-S1. Spondylolysis pars interarticularis, L5-S1. No lytic or blastic lesions. No acute cortical disruption. 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 Electronically signed by: Anmol Sepulveda MD 04/16/2024 10:08 AM EDT
--- NOTE | ~2024-04-12 | XR_ITS ---
EXAMINATION: XR PELVIS 1-2 VIEWS HISTORY: Chronic low back pain COMPARISON: There are no prior studies for comparison. FINDINGS: A single AP view of the pelvis is submitted. Osseous mineralization is normal. There is no fracture or dislocation. The hip and sacroiliac joint spaces are preserved. The soft tissues are unremarkable. XR/XR pelvis 1-2V IMPRESSION: Unremarkable examination of the pelvis. Electronically signed by: Kendrick Foster MD 04/16/2024 10:01 AM EDT
--- OUTSIDE RECORDS SUMMARY | 2024-04-12 10:54 | XMS_ITS | Encounter Summary ---
Author Organization [facility] Address [address] [place] [address] [address] [place] [address] Care Team Providers Care Internet Manager Name Role Phone Unavailable Primary Care Provider Unavailabl e Encounter Details Date Type Department Care Team (Latest Contact Info) Description 08/17/2018 Abstract [facility] Dental, Provider, DDS Social History Tobacco Use Types Packs/Day Years Used Date Smoking Tobacco: Never Assessed Comments Unknown Sex and Gender Information Value Date Recorded Sex Assigned at Female 12/07/2021 10:28 AM EDT Legal Sex Female 10:28 AM EDT Gender Identity Female 12/07/2021 10:28 AM EDT Sexual Orientation Straight 12/07/2021 10 :28 AM EDT documented as of this encounter Plan of Treatment Not on file documented as of this encounter Visit Diagnoses Not on filedocumented in this encounter
--- OUTSIDE RECORDS SUMMARY | 2024-04-12 10:55 | XMS_ITS | Encounter Summary ---
Author Organization [facility] Address [address] [facility] [address] [place] [address] Care Team Providers Care Personnel Security Assistant Name Role Phone Unavailable Primary Care Provider Unavailabl e Encounter Details Date Type Department Care Team (Late st Contact Info) Description 05/05/2022 Abstract [facility] [address] [place] [address] Georgi, Jessica [address] [place] [address] Social History Tobacco Use Types Packs/Day Years Used Date Smoking Tobacco: Every Day Cigarettes Smokeless Tobacco: Never Alcohol Use Standard Drinks/Week Comments Defer 0 (1 standard drink = 0.6 oz pur e alcohol) Comments Unknown Sex and Gender Information Value Date Recorded Sex Assigned at Female 12/07/2021 10:28 AM EDT Legal Sex Female 10:28 AM EDT Gender Identity Female 12/07/2021 10:28 AM EDT Sexual Orientation Straight 12/07/2021 10 :28 AM EDT COVID-19 Exposure Response Date Recorded In the last 10 days, have yo u been in contact with someone who was confirmed or suspected to have Coronavirus/COVID-19? No / Unsure 04/29/2022 9:09 AM EDT documented as of this encounter Plan of Treatment Not on file documented as of this encounter Visit Diagnoses Not on filedocumented in this encounter
--- OUTSIDE RECORDS SUMMARY | 2024-04-12 10:55 | XMS_ITS | Encounter Summary ---
Author Organization [facility] Address [address] [facility] [address] [place] [address] Care Team Providers Care Television Director Name Role Phone Unavailable Primary Care Provider Unavailabl e Encounter Details Date Type Department Care Team (Late st Contact Info) Description 05/17/2022 Abstract [facility] [address] [place] [address] Georgi, Jessica [address] [place] [address] Social History Tobacco Use Types Packs/Day Years [...] suspected to have Coronavirus/COVID-19? No / Unsure 05/20/2022 8:47 AM EDT documented as of this encounter Plan of Treatment Not on file documented as of this encounter Visit Diagnoses Not on filedocumented in this encounter
--- OUTSIDE RECORDS SUMMARY | 2024-04-12 10:55 | XMS_ITS | Encounter Summary ---
Author Organization [employer] [facility] Address [address] [facility] [address] [place] [address] Care Team Providers Care Community Cultural Development Officer Name Role Phone Unavailable Primary Care Provider Unavailabl e Encounter Details Date Type Department Care Team (Late st Contact Info) Description 05/17/2022 Abstract [facility] [address] [place] [address] Georgi, Jessica [address] [place] [address] Social History Tobacco Use Types Packs/Day Years [...]
--- OUTSIDE RECORDS SUMMARY | 2024-04-12 10:55 | XMS_ITS | Clinical Summary ---
Author Organization [employer] Address [address] [place] [address] [address] [place] [address] Care Team Providers Care Work And Family Life Consultant Name Role Phone Unavailable Primary Care Provider Unavailabl e Allergies No known active allergies Medications Albuterol Sulfate (ProAir RespiClick) 108 (90 Base) MCG/ACT aerosol powder Inhale 2 puffs every 4 (four) hours. Active Ventolin HFA 108 (90 Base) MCG/ACT inhaler INHALE 2 PUFFS BY MOUTH 3 TIMES A DAY 04/08/2022 Active cetirizine (ZyrTEC) 10 MG tablet Take 10 mg by mouth in the morning. 04/07/2022 Active famotidine (Pepcid) 20 MG tablet Take 1 tablet by mouth 2 times daily. 03/01/2022 Active Flovent HFA 110 MCG/ACT inhaler TAKE 1 PUFF BY MOUTH TWICE A DAY 04/08/2022 Active ibuprofen 800 MG tablet TAKE 1 TABLET BY MOUTH THREE TIMES A DAY WITH FOOD 06/26/2021 Active sertraline (Zoloft) 25 MG tablet Take 1 tablet by mouth at bed time. Active Spacer/Aero-Hol ding Chambers (OptiChamber Ramya) misc USE DIRECTED 04/14/2022 Active Active Problems Problem Noted Date Diagnosed Date Loss of filling from access hole of tooth 2022 Dental calculus 04/21/2022 Periodontal disease 04/21/2022 Acute periodontal abscess 04/21/2022 Social History Tobacco Use Types Packs/Day Years Used Date Smoking Tobacco: Every Day Cigarettes Smokeless Tobacco: Never Tobacco Cessation:Ready to Q uit: Not Asked; Counseling Given: Not Answered Alcohol Use Standard Drinks/Week Comments Defer 0 (1 standard drink = 0.6 oz pur e alcohol) Comments Unknown Sex and Gender Information Value Date Recorded Sex Assigned at Female 12/07/2021 10:28 AM EDT Legal Sex Female 10:28 AM EDT Gender Identity Female 12/07/2021 10:28 AM EDT Sexual Orientation Straight 12/07/2021 10 :28 AM EDT Last Filed Vital Signs Vital Sign Reading Time Taken Comments Blood Pressure 130/78 12/08/2022 9:37 AM EDT Pulse 65 07/02/2022 11:06 AM EDT Temperature - - Respiratory Rate - - Oxygen Saturation - - Inhaled Oxygen Concentration - - Weight - - Height - - Body Mass Index - - Plan of Treatment Health Maintenance Due Date Last Done Comments CT Colonography 1972 Colonoscopy 1972 Colorectal Cancer Screening 1972 Dental Prophylaxis 1972 Depression Screening 1972 FIT DNA/Cologuard 1972 FIT 1972 FOBT 1972 HIV Screening 1972 SDOH Screening 1972 Sigmoidoscopy 1972 Alcohol/Substance Use Screening 1984 Family Planning (PISQ) 01/09/1987 Hepatitis C Screening 01/09/1990 Hepatitis B Vaccines (1 of 3 - 19+ 3-dose series) 01/09/1991 Pap Smear 01/09/1993 Cervical Cancer Screening 01/09/2002 HPV/Cotest 01/09/2002 Mammogram 06/16/2022 06/16/2020, 08/03/2017 Dental Oral Exam 10/23/2022 04/21/2022 Zoster Vaccines (2 of 2) 04/14/2023 02/17/2023 Dental X-Ray: Bitewings 04/23/2023 04/21/2022 COVID-19 Vaccine ( season) 2023 02/17/2022, 01/23/2021, 05/21/2020, Additional history exists Influenza Vaccine (#1) 2023 , 02/06/2015, 11/27/2013 DTaP/Tdap/Td Vaccines (2 - Td or Tdap) 12/05/2023 12/04/2013, 10/23/2011 Tobacco Screening 12/09/2023 12/08/2022 Dental X-Ray: Full Mouth 04/22/2025 04/21/2022 RSV Patients and Patients Aged 60 years or older (1 - 1-dose 75+ series) 01/09/2047 Pneumococcal Vaccine: 50+ Years Completed 07/07/2022, 08/21/2019 Pneumococcal Vaccine: Pediatrics (0 to 5 Years) and At-Risk Patients (6 to 49) Years) Completed 07/07/2022, 08/21/2019 HIB Vaccines Aged Out No longer eligi ble based on patient's age to complete this topic HPV Vaccines Aged Out No longer eligi ble based on patient's age to complete this topic Hepatitis A Vaccines Aged Out No long er eligible based on patient's age to complete this topic IPV Vaccines Aged Out No longer eligi ble based on patient's age to complete this topic Meningococcal Vaccine Aged Out No nataly maricel eligible based on patient's age to complete this topic RSV under 20 months Aged Out No longe r eligible based on patient's age to complete this topic Rotavirus Vaccines Aged Out No longer eligible based on patient's age to complete this topic Procedures Procedure Name Priority Date/Time Associated Diagnosis Comments INTRAORAL - COMPLETE SERIES OF RADIOGRAPHIC IMAGES Routine 04/21/2022 11:00 AM EDT Dental calculus Periodontal disease Acute periodontal abscess PERIODIC ORAL EVALUATION - ESTABLISHED PATIENT Routine 04/21/2022 10:45 AM EDT from Last 3 Months or Most Recently Relevant to Health Maintenance Insurance [facility] [place] [address]
== END 2024-04-12 09:35 | disposition home or self-care (01) ==
LOC: HO.XRAY 09:34
PROVIDERS: PCP Physician Assistant Surgical; Visit Provider Physician Assistant Surgical
DX: M54.50 Low back pain, unspecified (principal); G89.29 Other chronic pain
CPT/HCPCS: 72100; 72170

== ENCOUNTER 2024-04-12 09:42 | Outpatient (RCR) | payer OTHER, SELFPAY | END 2024-05-25 11:26 | disposition home or self-care (01) | LOC: HO.PT 09:42 | PROVIDERS: PCP Physician Assistant Surgical; Visit Provider Physical Medicine & Rehabilitation | DX: M54.12 Radiculopathy, cervical region (principal) | CPT/HCPCS: 97110; 97140; 97161 ==

== ENCOUNTER → 2024-04-12 11:05 | Outpatient (BNV) | payer OTHER, SELFPAY | PROVIDERS: PCP Physician Assistant Surgical; Visit Provider Radiology Diagnostic Radiology | DX: M43.07 Spondylolysis, lumbosacral region (principal); M54.50 Low back pain, unspecified | CPT/HCPCS: 72100 ==

== ENCOUNTER 2025-01-10 09:24 | Outpatient (REF) | payer MEDICAID, SELFPAY ==
[2025-01-10 10:27] LABS: Alanine Aminotransferase 17 U/L (0-31); Albumin Level 4.2 g/dL (3.5-5.0); Alkaline Phosphatase 69 U/L (39-117); Anion Gap 11 (12-20); Aspartate Amino Transferase 21 U/L (5-31); Blood Urea Nitrogen 9 mg/dL (9-16); Calcium 9.1 mg/dL (8.4-10.2); Carbon Dioxide 25 mmol/L (22-29); Chloride 108 mmol/L (96-108); Cholesterol 209 mg/dL (<200); Estimated Glomerular Filt Rate > 60; HDL Cholesterol 51 mg/dL (>40); Potassium 4.0 mmol/L (3.3-5.1); Sodium 140 mmol/L (135-145); Total Protein 7.3 g/dL (6.5-8.0); Triglycerides 114 mg/dL (<150)
--- OUTSIDE RECORDS SUMMARY | 2025-01-10 10:41 | XMS_ITS | Encounter Summary ---
Author Organization [facility] Address [address] [place] [address] Phone Care Team Providers Care Spinning Operator Name Role Phone Eddy Cruz PA-C Primary Care Provider [phone] Luther Bertrand DO Unavailable [phone] Jordan Heredia MD Unavailable [phone] Uriel Blanco MD Unavailable Reason for Visit * Reason Comments Medication Refill Encounter Details Date Type Department Care Team (Late st Contact Info) Description 01/07/2025 Refill [facility] [place] [facility] [address] [place], [place] [id number] Eddy Cruz PA-C [address] [place] [address] [email or web address] Medication Refill Social History Tobacco Use Types Packs/Day Years Used Date Smoking Tobacco: Every Day Cigarettes 0.5 10 Smokeless Tobacco: Never Comments:4-5 cigarettes or l ess daily, x 20 yrs Alcohol Use Standard Drinks/Week Comments Yes 0 (1 standard drink = 0.6 oz pur e alcohol) a few a month Child or Family Care Answer Date Record ed Do you have problems with on e of the following making it difficult for you to work, study, or receive health care? No 2024 Education Answer Date Recorded Are you interested in help w ith more adult education (for example, completing high school, GED, job training, learning the Finnish language, technical skills, or developing parenting skills)? No 2024 Are you concerned about learning? Not on file 2024 No 2024 Yes 2024 Food Answer Date Recorded Within the past 6 months we worried whether our food would run out before we got money to buy more. Never True 2024 Within the past 6 months the food we bought just didn't last and we didn't have enough money to get more. Never True Residential Stability Answer Date Recor ded What is your housing situation today? I have jill sing 2024 How many times have you move d in the past 12 months? Zero (I did not move) 2024 Paying for Meds Answer Date Recorded Do you have trouble paying for medicines? No 2024 Paying Utility Bills Answer Date Record ed Do you have trouble paying your heating or elect ricity bill? No 2024 Transportation Answer Date Recorded Has the lack of transportati on kept you from medical appointments or from getting medications? No 2024 Unemployment Answer Date Recorded Are you currently unemployed or working on a part-time or temporary basis, and looking for work? No 03/28/2021 Digital Access Answer Date Recorded No 2024 Yes 2024 Do you have reliable internet access at home? Ye s 2024 Do you have a device (e.g., phone, tablet, computer) with a working camera? Yes 2024 SNAP & WIC Answer Date Recorded Do you receive benefits from SNAP (the Supplemental Nutrition Assistance Program) or the Food Stamp Program? Yes 2024 SNAP is a free program, interested in learning m ore? Not on file 2024 Can we help you enroll in SNAP? Not on file 2024 Benefits received from WIC? Not on file 04/2023 WIC is a free program, interested in learning mo re? Not on file 2024 Can we help you enroll in WIC? Not on file 1 03/12/2023 Intimate Partner Violence Answer Date R ecorded Are you denied basic needs s uch as food, clothing, or medical care? No 05/28/2024 In the past 12 months have y ou been in a relationship with a person who hurts, threatens, or tries to control you? No 05/28/2024 Are you denied basic needs s uch as food, clothing, or medical care? No 05/28/2024 In the past 12 months have y ou been in a relationship with a person who hurts, threatens, or tries to control you? No 05/28/2024 Comments No Sex and Gender Information Value Date Recorded Sex Assigned at Not on file Legal Sex Female 9:32 PM EDT Gender Identity Not on file Sexual Orientation Not on file documented as of this encounter Progress Notes * Zoraida Freed CMA - 01/07/2025 7:58 AM EST Rx Care Gap Status - Instructions for Clinical Staff (prescriber discretion applies): > Mismatch review guide > N/a - No action needed Visit Info Last visit: 08/02/2024 Eddy Cruz PA-C - Internal Medicine [facility] > Requested f/u: Return for Next scheduled follow up. Upcoming visit: 01/22/2025 Eddy Cruz PA-C - Internal Medicine [facility] ACTIONS TAKEN BY Zoraida Freed CMA - Criteria met. Gastrointestinal Rx Protocol (H2 blockers, PPIs, stool softeners, laxatives) - famotidine Criteria met; renew for up to 12 months. Visit in the past 24 months: Yes documented in this encounter Plan of Treatment Upcoming Encounters Date Type Department Care Team (Late st Contact Info) Description 01/22/2025 10:40 AM EST Office Visit [facility] [address] [place] [address] Eddy Cruz PA-C [address] [place] [address] [email or web address] documented as of this encounter Visit Diagnoses Diagnosis Gastroesophageal reflux disease without esophagitis Esophageal reflux documented in this encounter Additional Health Concerns Assessment Noted Time PHQ-9 Depression Total Score: 7 07/08/19 23 11:06 AM EDT PHQ-2 Depression Total Score: 2 01/10/20 24 8:56 PM EST documented as of this encounter Care Teams Spinning Operator Relationship Specialty Start Date End Date Eddy Cruz PA-C [address] [place] [address] [email or web address] PCP - General Physician Topographical Engineer 09/02/23 Luther Bertrand DO [address] [place] [address], [address] [place] [address] [email or web address] and Immunology 01/17/24 Jordan Heredia MD [address] [place] [address] Orthopedic Surgery 02/07/24 Uriel Blanco MD [address] [place] [address] [email or web address] Insurance Assigned Provider 12/22/24 documented as of this encounter Additional Source Comments The information contained in this document represents components of the legal health record. It is not the complete legal health record.[facility]
--- OUTSIDE RECORDS SUMMARY | 2025-01-10 10:41 | XMS_ITS | Encounter Summary ---
Author Organization [facility] Address [address] [place] [address] [place] [address] Phone Care Team Providers Care Tax Preparer Name Role Phone Eddy Cruz PA-C Primary Care Provider [phone] Luther Bertrand DO Unavailable [phone] Jordan Heredia MD Unavailable [phone] Uriel Blanco MD Unavailable Reason for Visit * Reason Onset Date Comments Labs 01/07/2025 Encounter Details Date Type Department Care Team (Late st Contact Info) Description 01/07/2025 Telephone [employer] [facility] Internal Medicine [address] [place], [place] [phone] Eddy Cruz PA-C [address] [place], [place] [phone] [email or web address] Social History Tobacco Use Types Packs/Day Years [...] high school, GED, job training, learning the Luxembourger language, technical skills, or developing parenting skills)? [...] as of this encounter Progress Notes * Simon Dumont - 01/07/2025 3:24 PM EST Orders faxed to [email or web address] * Eddy Cruz PA-C - 01/07/2025 2:00 PM EST Labs ordered for upcoming CPE * Zoraida Freed CMA - 01/07/2025 1:37 PM EST Labs prior to CPE 01/22/25? documented in this encounter Plan of Treatment Upcoming Encounters Date Type Department Care Team (Late st Contact Info) Description 01/22/2025 10:40 AM EST Office Visit [facility] Internal Medicine [address] [place] [address] Eddy Cruz PA-C [address] [place] [address] [email or web address] Scheduled Orders Name Type Priority Associated Diagnoses Orde r Schedule Comprehensive Metabolic Panel (CMP) Lab Routine Routine general medical examination at a health care facility Expected: 01/07/2025, Expires: 01/07/2026 Lipid Panel Lab Routine Routine general medical examination at a health care facility Expected: 01/07/2025, Expires: 01/07/2026 Thyroid Stimulating Hormone (TSH), with Reflex Lab Routine Routine general medical examination at a health care facility Expected: 01/07/2025, Expires: 01/07/2026 documented as of this encounter Visit Diagnoses Diagnosis Mixed hyperlipidemia- Primary Hypothyroidism, unspecified type Routine general medical examination at a health care facility documented in this encounter Additional Health Concerns Assessment Noted Time PHQ-9 Depression Total Score: 7 07/08/19 23 11:06 AM EDT PHQ-2 Depression Total Score: 2 01/10/20 24 8:56 PM EST documented as of this encounter Care Teams Tax Preparer Relationship Specialty Start Date End Date Eddy Cruz PA-C [address] [place] [address] PCP - General Physician Cheese Pancake Roller 09/02/23 Luther Bertrand DO [address] [place] [address], [facility] [address] [place] [address] [email or web address] and [email or web address] 01/17/24 Jordan Heredia MD [address] [place] [address] Orthopedic Surgery 02/07/24 Uriel Blanco MD [address] [place] [address] [email or web address] Insurance Assigned Provider 12/22/24 documented as of this encounter Additional Source Comments The information contained in this document represents components of the legal health record. It is not the complete legal health record.[facility]
--- OUTSIDE RECORDS SUMMARY | 2025-01-10 10:41 | XMS_ITS | Encounter Summary ---
Author Organization [facility] Address [address] [facility] [address] [place] [address] Phone Care Team Providers Care Mobile Phlebotomist Name Role Phone Eddy Cruz PA-C Primary Care Provider [phone] Luther Bertrand DO Unavailable [phone] Jordan Heredia MD Unavailable [phone] Uriel Blanco MD Unavailable Encounter Details Date Type Department Care Team (Late st Contact Info) Description 01/17/2024 Procedure Pass [facility], [address] [address] Social History Tobacco Use Types Packs/Day Years Used Date Smoking Tobacco: Every Day Cigarettes 0.5 10 Smokeless Tobacco: Never Comments:4-5 cigarettes or l ess daily, x 20 yrs Alcohol Use Standard Drinks/Week Comments Yes 0 (1 standard drink = 0.6 oz pur e alcohol) 5 drinks, 2-4 x month Child or Family Care Answer Date Record ed Do you have problems with on e of the following making it difficult for you to work, study, or receive health care? No 2024 Education Answer Date Recorded Are you interested in help w ith more adult education (for example, completing high school, GED, job training, learning the Bangladeshi language, technical skills, or developing parenting skills)? [...] your housing situation today? I have jill ramos 2024 How many times have you move [...] Intimate Partner Violence Answer Date R ecorded Denied Basic Needs Not on file 2024 In the past 12 months have y ou been in a relationship with a person who hurts, threatens, or tries to control you? No 2024 Worried food would run out Not on file 01/09 In the past 12 months have y ou been in a relationship with a person who hurts, threatens, or tries to control you? No 2024 Comments No Sex and Gender Information Value Date Recorded Sex Assigned at Not on file Legal Sex Female 9:32 PM EDT Gender Identity Not on file Sexual Orientation Not on file documented as of this encounter Plan of Treatment Upcoming Encounters Date Type Department Care Team (Late st Contact Info) Description 01/22/2025 10:40 AM EST Office Visit [facility] Internal Medicine [address] [place] [address] Eddy Cruz PA-C [address] [place] [address] documented as of this encounter Visit Diagnoses Not on filedocumented in this encounter Additional Health Concerns Infection Onset Date Last Indicated Resolved Time COVID-19 03/16/2024 03/16/2024 04/06/2024 1:21 AM EST Assessment Noted Time PHQ-9 Depression Total Score: 7 07/08/19 23 11:06 AM EDT PHQ-2 Depression Total Score: 2 01/10/20 24 8:56 PM EST documented as of this encounter Care Teams Mobile Phlebotomist Relationship Specialty Start Date End Date Eddy Cruz PA-C [address] [place] [address] PCP - General Physician English Faculty Member 09/02/23 Luther eBrtrand DO [address] [place] [address], [address] [place] [address] [email or web address] and [email or web address] 01/17/24 Jordan Heredia MD [address] [place] [address] Orthopedic Surgery 02/07/24 Uriel Blanco MD [address] [place] [address] [email or web address] Insurance Assigned Provider 12/22/24 documented as of this encounter Additional Source Comments The information contained in this document represents components of the legal health record. It is not the complete legal health record.[facility]
--- OUTSIDE RECORDS SUMMARY | 2025-01-10 10:41 | XMS_ITS | Encounter Summary ---
Author Organization [facility] Address [address] [facility] [address] [place] [address] Phone Care Team Providers Care Electrician Apprentice Powerhouse Name Role Phone Eddy Cruz PA-C Primary Care Provider [phone] Luther Bertrand DO Unavailable [phone] Jordan Heredia MD Unavailable [phone] Uriel Blanco MD Unavailable Encounter Details Date Type Department Care Team (Late st Contact Info) Description 05/28/2024 Procedure Pass [place] Admitting Dept - Virtual Department [address] [place] [address] Social History Tobacco Use Types Packs/Day Years [...] high school, GED, job training, learning the Bolivian language, technical skills, or developing parenting skills)? [...] Description 01/22/2025 10:40 AM EST Office Visit [facility] Internal Medicine [address] [place], [place] [phone] Eddy Cruz PA-C [address] [place] [address] [email or web address] documented as of this encounter Visit Diagnoses Not on filedocumented in this encounter Additional Health Concerns Assessment Noted Time PHQ-9 Depression Total Score: 7 07/08/19 23 11:06 AM EDT PHQ-2 Depression Total Score: 2 01/10/20 24 8:56 PM EST documented as of this encounter Care Teams Electrician Apprentice Powerhouse Relationship Specialty Start Date End Date Eddy Cruz PA-C [address] [place] [address] [email or web address] PCP - General Physician Air Grinder 09/02/23 Luther Bertrand DO [address] [place] [address], [address] [place], [place] [id number] [email or web address] and [email or web address] 01/17/24 Jordan Heredia MD [address] [place] [address] Orthopedic Surgery 02/07/24 Uriel Blanco MD [address] [place] [address] Insurance Assigned Provider 12/22/24 documented as of this encounter Additional Source Comments The information contained in this document represents components of the legal health record. It is not the complete legal health record.[facility]
--- OUTSIDE RECORDS SUMMARY | 2025-01-10 10:41 | XMS_ITS | Encounter Summary ---
Author Organization [facility] Address [address] [facility] [address] [place] [address] Phone Care Team Providers Care Manual Writer Name Role Phone Eddy Cruz PA-C Primary Care Provider [phone] Luther Bertrand DO Unavailable [phone] Jordan Heredia MD Unavailable [phone] Uriel Blanco MD Unavailable Encounter Details Date Type Department Care Team (Late st Contact Info) Description 01/18/2024 Procedure Pass [facility], [address] [id number] Social History Tobacco Use Types Packs/Day Years [...] high school, GED, job training, learning the Dutch language, technical skills, or developing parenting skills)? [...] 01/22/2025 10:40 AM EST Office Visit [facility] Internal Medicine [address] [place] [address] Eddy Cruz PA-C [address] [place] [address] documented as of this encounter Visit Diagnoses Not on filedocumented in this encounter Additional Health Concerns Infection Onset Date Last Indicated Resolved Time COVID-19 03/16/2024 03/16/2024 04/06/2024 1:21 AM EST Assessment Noted Time PHQ-9 Depression Total Score: 7 07/08/19 23 11:06 AM EDT PHQ-2 Depression Total Score: 2 01/10/20 24 8:56 PM EST documented as of this encounter Care Teams Manual Writer Relationship Specialty Start Date End Date Eddy Cruz PA-C [address] [place] [address] PCP - General Physician Parcel Post Carrier 09/02/23 Luther Bertrand DO [address] [place] [address], [address] [place] [address] [email or web address] and [email or web address] 01/17/24 Jordan Heredia MD [address] [place] [address] Orthopedic Surgery 02/07/24 Uriel Blanco MD [address] [place] [address] [email or web address] Insurance Assigned Provider 12/22/24 documented as of this encounter Additional Source Comments The information contained in this document represents components of the legal health record. It is not the complete legal health record.[facility]
--- OUTSIDE RECORDS SUMMARY | 2025-01-10 10:41 | XMS_ITS | Clinical Summary ---
Author Organization [facility] Address [address] [address] Phone Care Team Providers Care Charter Coordinator Name Role Phone Eddy Cruz PA-C Primary Care Provider Luther Bertrand DO Unavailable [phone] Jordan Heredia MD Unavailable [phone] Uriel Blanco MD Unavailable Allergies Active Allergy Reactions Criticality Noted Date Comments Animal Dander Shortness Of Breath,Sneezing,Wheezing High 03/01/2024 Grass Pollen 03/01/2024 House Dust Mite Shortness Of Breath,Sneezing,Wheezing High 03/01/2024 Mold 03/01/2024 Tree And Shrub Pollen Sneezing,Wheezing 025 [place] Pollen 03/01/2024 Medications ibuprofen (ADVIL,MOTRIN) 600 MG tablet Take 1 tablet (600 mg total) by mouth every 8 (eight) hours as needed for pain (specific location in comments) (with food). 90 tablet 02/13/19 20 Active inhaler spacing device (AEROCHAMBER,MONO ATHERITE) Spcr Use as directed 1 each 1 04/15/19 23 Active fluticasone furoate (ARNUITY ELLIPTA) 100 mcg/actuation DsDv Inhale 1 puff into the lungs daily. 30 each 01/17/20 24 Active acetaminophen (TYLENOL) 325 mg tablet Take 2 tablets (650 mg total) by mouth every 4 (four) hours as needed for pain (specific location in comments). 04/21/20 25 Active LORazepam (ATIVAN) 1 MG tablet TAKE 1-2 TABLETS BY MOUTH 1 HOUR BEFORE INJECION 05/24/19 25 Active gabapentin (NEURONTIN) 300 MG capsule Take 300 mg by mouth. Qhs x 3 days then 2 capsules daily 08/02/19 25 Active albuterol (VENTOLIN HFA) 90 mcg/actuation inhalerIndicatio ns:Mild persistent asthma without complication INHALE 2 PUFFS BY MOUTH 3 TIMES A DAY 18 g 2 09/19/19 25 Active cetirizine (ZYRTEC) 10 MG tabletIndication s:Seasonal allergic rhinitis due to pollen TAKE 1 TABLET BY MOUTH EVERY DAY 90 tablet 3 09/29/19 25 Active cyclobenzaprine (FLEXERIL) 10 MG tablet TAKE 1 TABLET (10 MG) BY MOUTH 3 TIMES A DAY NEEDED FOR MUSCLE SPASM 21 tablet 09/29/19 25 Active famotidine (PEPCID) 20 MG tabletIndication s:Gastroesophage al reflux disease without esophagitis TAKE 1 TABLET BY MOUTH TWICE A DAY 180 tablet 3 01/08/20 25 Active famotidine (PEPCID) 20 MG tabletIndication s:Gastroesophage al reflux disease without esophagitis Take 1 tablet (20 mg total) by mouth 2 (two) times a day. 180 tablet 3 01/17/20 24 025 Discontinued Active Problems Problem Noted Date Diagnosed Date Tachycardia 07/06/2024 Assessment & Plan (08/02/2024 10:53 AM EDT): Episode of tachycardia after receiving the epidural injection on 07/05/2024. She underwent the epidural injection for her back and states that this did not provide any relief of her back and therefore will no longer be receiving the epidural injections. She did have a single episode of tachycardia with a highest heart rate of 103 and the feeling of palpitations. She denied any shortness of breath, chest pain or the use of her an albuterol inhaler. I do feel that her episode of tachycardia was result of a side effect from the epidural injection. She did undergo a CBC which showed a leukocytosis which could also be from the epidural injection she says prior as she did not have any signs or symptoms to suggest infection. Her CRP and TSH levels were within normal limits. Since then she has not had any further episodes. She states that she is feeling well. I did explain to the patient that if she does have further episodes without the an epidural injection then we will obtain an echocardiogram, 30-day Holter monitor for further evaluation. Assessment & Plan (07/06/2024 3:11 PM EDT): She had not been using the albuterol inhaler and her breathing studies. Her blood pressure is up but most likely secondary to the hyperdynamic state. EKG showing tachycardia but otherwise unremarkable. Lets obtain a CRP and a CBC looking for signs of infection. Will also have the patient follow-up with her primary provider. I would like to append to the discussion and plan that she did have a epidural yesterday that could possibly cause a reaction with either the cortisone or lidocaine causing heart racing. She is stable though so we will reevaluate her in 4 weeks but she should certainly call us up or present to the ER over the weekend if she starts to feel diaphoretic chest pain or dizziness. History of dermoid cyst excision 06/15/2024 Abscess of right breast 03/08/2024 Assessment & Plan (03/08/2024 10:31 AM EST): Patient with noted right breast abscess that was initially diagnosed in January. At that time she was advised to use warm compresses and was started on Keflex for 1 week. Patient subsequently underwent a diagnostic mammogram and ultrasound of the right breast however this was not scheduled until February. At that time it was noted that she was having some resolution of her abscess however was still noted on ultrasound. She was seen by general surgery who recommended another short course of antibiotic. She was started on Keflex 500 mg p.o. 4 times daily x 10 days. She will follow-up with them in 1 month and at that time we will determine if patient needs further imaging and/or biopsy completed. 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 Tenderness to palpation. Patient was started on Keflex 500 mg p.o. 3 times daily with completion of the antibiotic today. Patient notes some improvement however noted to have some fluctuance in the abscess She is scheduled for her right breast ultrasound/diagnostic mammogram on February 27 -Patient started on doxycycline 100 mg p.o. twice daily x 7 days today. -Patient to continue warm compresses 20 minutes on 20 minutes off -Due to the nature of the fluctuance for possible abscess excision I have placed an referral to Dr. Alvarado Assessment & Plan (01/17/2024 12:37 PM EST): + erythema with noted abscess at the 9 o'clock position of the right breast. + tenderness to palpation. -Start Keflex 500 mg p.o. 3 times daily x 7 days -Use a warm packs for 20 minutes on 20 minutes off -Urgent ultrasound of the right breast [facility] -Follow-up with me and 1 week for reevaluation Cervical radiculopathy 11/07/2023 Assessment & Plan (01/17/2024 12:39 PM EST): Patient with noted cervical radiculopathy who underwent an MRI on 12/13/23 noted which shows multilevel cervical spondylosis (which means some inflammation due possible arthritis) C4-C7 which results in central spinal canal stenosis at C4C5 (narrowing of the canal) and lesser at the C5C6- there is no cord compression, swelling, or myelopathy (meaning spinal cord compression resulting in nerve dysfunction). It was recommended she see [facility] and she has an appt on Jan 25. Continue Flexeril 5 mg p.o. twice daily as needed and ibuprofen as needed Assessment & Plan (11/07/2023 11:23 AM EDT): Patient noted to have weakness in the right upper extremity along with positive Spurling's compression test on the right. Patient has undergone x-rays as well as PT in the past without any improvement in her x-ray showed arthritis. No ever pain has becoming worse. -MRI of the cervical spine patient would like it to be done at [facility] -Continue ibuprofen and Flexeril as needed Flu vaccine need 11/07/2023 Assessment & Plan (11/07/2023 11:22 AM EDT): Vaccine given SHANNA (obstructive sleep apnea) 12/29/2022 Assessment & Plan (01/17/2024 12:38 PM EST): Patient was seen by sleep medicine who recommended a CPAP machine. There was some confusion with regards to her insurance and therefore I had asked the patient to reach back out to the pulmonary office to have them help her navigate the insurance to determine her co-pay Acute exacerbation of chronic low back pain 07/09 Allergic rhinitis 02/21/2017 Assessment & Plan (01/17/2024 12:38 PM EST): Continue Zyrtec 10 mg p.o. daily. Patient was seen by director of food and nutrition and is to undergo allergy shots for numerous allergens. Assessment & Plan (11/07/2023 11:21 AM EDT): Continue Zyrtec 10 mg p.o. daily Allergy testing with Dr. Bertrand Asthma 02/21/2017 Assessment & Plan (01/17/2024 12:37 PM EST): Continue annuity Ellipta, albuterol MDI as needed Assessment & Plan (11/07/2023 11:21 AM EDT): Continue Ventolin MDI as needed and Arnuity GERD (gastroesophageal reflux disease) 8 Assessment & Plan (01/17/2024 12:37 PM EST): Continue Pepcid 20 mg p.o. twice daily Assessment & Plan (11/07/2023 11:21 AM EDT): Continue Pepcid 20 mg p.o. twice daily Resolved Problems Problem Noted Date Diagnosed Date Resolved Date Cigarette nicotine dependenc e without complication 07/07/2022 11/07/2023 Left lateral epicondylitis 11/12/2020 0 11/07/2023 Assessment & Plan (11/12/2020 11:05 AM EDT): Left-sided tennis elbow, patient should lead with the right where she is right- handed and just use the left hand to guide not eat pretty much strain on the epicondyle musculature. Literature given to her regarding the condition, we recommend to a tennis elbow brace that she can worm picker at [facility]. Excessive consumption of soda pop 06/30/2018 11/07/2023 Chronic right shoulder pain 06/30/2018 11/07/2023 Seasonal allergic rhinitis due to pollen 02/21/2017 11/07/2023 Tobacco use disorder 02/21/2017 024 Encounters Date Type Department Care Team Description 01/07/2025 Telephone [facility] [address] [place] [address] Eddy Cruz PA-C Labs 01/07/2025 Refill [facility] [address] [place] [address] Eddy Cruz PA-C Medication Refill 11/05/2024 [facility] RISK SCORES SYSTEM GENERATED External System Generated Encounter [address] [place] [address] Unknown, Unknown, from Last 3 Months Immunizations Immunization Administration Dates Next Due COVID-19 (Pre-11/29) Pfizer Vaccine, mRNA, PF ,04/26/2020 INFLUENZA, SPLIT VIRUS, TRIVALENT PF 11/07/2023, 02/06/2015 INFLUENZA, SPLIT VIRUS, TRIVALENT W/ PRESERVATIV E IM 11/27/2013 Influenza Quadrivalent Preservative Free IM 03/10 Influenza Recombinant Trivalent Preservative Alex e IM 11/26/2024 Pneumococcal conjugate PCV20 07/07/2022 Pneumococcal polysaccharide PPSV23 08/21/2019 Td (adult) 5 Lf Tetanus Toxoid, PF, Adsorbed 11/2023,10/23/2011 Tdap 12/04/2013 Zoster recombinant 04/25/2023,02/17/2023 Family History Medical History Relation Comments Hypertension Brother 1 No Known Problems Brother 2 No Known Problems Brother 3 No Known Problems Brother 4 No Known Problems Brother 5 Colon cancer Mother Hypertension Mother Lung cancer Mother Diabetes Sister 1 No Known Problems Sister 2 No Known Problems Sister 3 No Known Problems Sister 4 No Known Problems Sister 5 No Known Problems Sister 6 Asthma Son 1 No Known Problems Son 2 No Known Problems Son 3 Relation Status Comments Brother 1 Alive Brother 2 Alive Brother 3 Alive Brother 4 Alive Brother 5 Alive Father Alive Mother Sister 1 Alive Sister 2 Alive Sister 3 Alive Sister 4 Alive Sister 5 Alive Sister 6 Alive Son 1 Alive Son 2 Alive Son 3 Alive Social History Tobacco Use Types Packs/Day Years Used Date Smoking Tobacco: Every Day Cigarettes 0.5 10 Smokeless Tobacco: Never Tobacco Cessation:Ready to Q uit: Not Asked; Counseling Given: Not Answered Comments:4-5 cigarettes or less daily, x 20 yrs Alcohol Use Standard [...] high school, GED, job training, learning the [place]ian language, technical skills, or developing parenting skills)? [...] on file Sexual Orientation Not on file Last Filed Vital Signs Vital Sign Reading Time Taken Comments Blood Pressure 120/70 08/02/2024 10:00 AM EDT Pulse 88 08/02/2024 10:00 AM EDT Temperature 36.4 C (97.6 F) 07/06/2024 2:21 PM EDT Respiratory Rate 17 08/02/2024 10:00 AM EDT Oxygen Saturation 98% 08/02/2024 10:00 AM EDT Inhaled Oxygen Concentration - - Weight 71.3 kg (157 lb 3.2 oz) 08/02/2024 10:00 AM EDT Height 144.8 cm (4' 9.01 ) 08/02/2024 10:00 AM E DT Body Mass Index 34.01 08/02/2024 10:00 AM EDT Plan of Treatment Upcoming Encounters Date Type Department Care Team (Late st Contact Info) Description 01/22/2025 10:40 AM EST Office Visit [facility] [address] [place] [address] Eddy Cruz PA-C [address] [place] [address] [email or web address] Health Maintenance Due Date Last Done Comments COLOGUARD 01/09/2017 FIT TEST 01/09/2017 FOBT 01/09/2017 SIGMOIDOSCOPY 01/09/2017 VIRTUAL COLONOSCOPY 01/09/2017 RSV VACCINE (1 - Risk 50-74 years 1-dose series) 01/09/2022 COVID-19 VACCINE ( season) 2024 02/17/2022, 01/23/2021, 05/21/2020, Additional history exists DEPRESSION SCREENING 01/09/2025 2024, 07/08/19 23 PAP SMEAR 07/07/2025 07/07/2022, 05/08, 05/24/2017 SMOKING Hx and SMOKELESS TOBACCO SCREENING 08/02/2025 08/02/2024 MAMMOGRAM 02/27/2026 02/28/2024, 01/07, 08/05/2022, Additional history exists SCREENING FOR DIABETES 01/16/2027 , 08/30/2019, 05/27/2017 LIPID PANEL 01/16/2029 01/17/2024, 0502/2022, 07/07/2022, Additional history exists COLONOSCOPY 06/13/2029 06/13/2024 COLORECTAL CANCER SCREENING 06/13/2029 Adult Td,Tdap Booster 01/16/2034 01/17/2024 , 12/04/2013, 10/23/2011 HEPATITIS C SCREENING Completed 07/07/2022, 023 HIV ONE-TIME SCREENING (18-65 YEARS) Completed 07/07/2022 PNEUMOCOCCAL VACCINES (50+ years) Completed 07/07/2022, 08/21/2019 ZOSTER VACCINES Completed 04/25/2023, 02/17/2023 INFLUENZA VACCINE Completed 11/26/2024, , 03/28/2021, Additional history exists HEPATITIS A VACCINES Aged Out No long er eligible based on patient's age to complete this topic HIB VACCINES Aged Out No longer eligi ble based on patient's age to complete this topic MENINGOCOCCAL VACCINES (ACWY) Aged Out No longer eligible based on patient's age to complete this topic MENINGOCOCCAL VACCINES (B) Aged Out N o longer eligible based on patient's age to complete this topic Medical Devices Not on file Procedures Procedure Name Priority Date/Time Associated Diagnosis Comments HM COLONOSCOPY FOR RESULT ENTRY ONLY Routine 06/13/2024 11:19 AM EDT BI MAMMOGRAM DIAGNOSTIC WITH TOMOSYNTHESIS WITH CAD (BILATERAL) Routine 02/28/2024 2:53 PM EST Mass of upper outer quadrant of right breast LIPID PANEL Routine 01/17/2024 12:00 PM EST Annual physical exam HEPATITIS C ANTIBODY, QUALITATIVE Routine 07/07/2022 11:51 AM EDT Need for hepatitis C screening test PAP TEST Routine 07/07/2022 12:00 AM EDT OUTSIDE GLUCOSE FASTING Routine 08/30/2019 from Last 3 Months or Most Recently Relevant to Health Maintenance Results * COLONOSCOPY FOR RESULT ENTRY ONLY (06/13/2024 11:19 AM EDT) us Historical Provider MD HEALTH MAINTENANCE Final Result * BI MAMMOGRAM DIAGNOSTIC WITH TOMOSYNTHESIS WITH CAD (BILATERAL) (02/28/2024 2:53 PM EST) Anatomical Region Laterality Modality Breast Left, Breast Right, Breast Bilateral Bila teral Mammography 02/28/2024 4:19 PM EST Addenda Addendum by Prema Lopez MD on 03/12/2024 3:46 PM EST ADDENDUM: Addendum: Prior outside mammograms from [facility] dated 12/17/2020, 06/29/2021 and 08/05/2022 have been received. There has been no interval change. Clinical follow-up to resolution for right breast skin abscess, currently being treated medically. BI-RADS 1 NEGATIVE Impressions 02/28/2024 4:22 PM EST 1. Outside prior mammograms are required for full evaluation, these were performed at [facility] and are being requested for comparison. 2. Resolving right skin abscess posterior patient's report of clinical course and appearance on ultrasound. Clinical follow-up to resolution is recommended. BI-RADS 0-P INCOMPLETE Need prior mammograms for comparison Results and recommendations were communicated to the patient at time of examination. Narrative 02/28/2024 4:22 PM EST BI MAMMOGRAM DIAGNOSTIC WITH TOMOSYNTHESIS WITH CAD (BILATERAL), BI US BREAST LIMITED (RIGHT) Additional patient information: Palpable area of concern in the right breast, patient being treated for skin abscess. COMPARISON: No prior breast imaging is available at time of dictation. Breast composition: The breast tissue is extremely dense which lowers the sensitivity of mammography. FINDINGS: Right Mammogram: There is no focal or suspicious mammographic correlate for the area of clinical concern. No abnormal masses, suspicious calcifications, or other significant findings are identified mammographically in the right breast. Right Ultrasound: Targeted ultrasound was performed in the area of clinical concern as indicated by the patient. There is focal skin edema underlying the area of skin discoloration and palpable thickening in the 9:00 position, 8 cm the nipple. There is no underlying breast mass noted. Left Mammogram: No abnormal masses, suspicious calcifications, or other significant findings are identified mammographically in the left breast. us Eddy Cruz PA-C IMG MG EXAMS Edited Result - Final * (ABNORMAL) Lipid panel (01/17/2024 12:00 PM EST) HDL 65 mg/dL [facility] Comment: Interpretation <40 mg/dL: Low HDL cholesterol (major risk factor for CHD) Greater than or equal to 60 mg/dL: High HDL cholesterol ( negative risk factor for CHD) HDL - cholesterol is affected by a number of factors, e.g. smoking, excerise, hormones, sex and age. CHOLESTEROL 239 0 - 240 mg/dL [facility] TRIGLYCERIDES 132 30 - 160 mg/dL [facility] LDL 148(H) 50 - 129 mg/dL [facility] Comment: LDL levels in terms of risk for coronary heart disease: <100 mg/dL: Optimal 100-129 mg/dL: Near or above optimal 130-159 mg/dL: Borderline high 160-189 mg/dL: High >190 mg/dL: Very High CARDIAC RISK RATIO 3.7 3.3 - 4.4 C [facility] Blood 01/17/2024 12:0 0 PM EST 01/17/2024 12:05 PM EST Eddy Cruz PA-C LAB BLOOD BKR ORDERABLES Kati l Result [facility] [address] [place] [address] * Hepatitis C antibody, qualitative (07/07/2022 11:51 AM EDT) HCV NON-REACTIV E NON-REACTI VE [facility] Blood 07/07/2022 11:5 1 AM EDT 07/07/2022 11:54 AM EDT Brie Valerio NP LAB BLOOD BKR ORDERABLES Final Result [address] [address] * Pap Test (07/07/2022 12:00 AM EDT) 07/07/2022 07/08/2022 8:2 8 AM EDT Narrative SEE NARRATIVE - 07/12/2022 6:58 PM EDT [address] [address] Estate Manager: Roxana Aaron MD 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 PAP SMEAR (SUREPATH) CE: SPECIMEN ADEQUACY: Satisfactory for evaluation; transformation zone present. INTERPRETATION: NEGATIVE FOR INTRAEPITHELIAL LESION OR MALIGNANCY. Reactive changes. Electronically Signed Out By: MD Elise Fraire CT(ASCP) By his/her signature above, the pathologist listed as making the Final Diagnosis certifies that he/she has personally reviewed this case and confirmed or corrected the diagnosis. The Pap test is a screening test primarily for squamous cancers and precursors and has associated false-negative and false-positive results. New technologies such as liquid-based preparations may decrease but will not eliminate all false-negative results. Regular sampling and follow-up of unexplained clinical signs and symptoms are recommended to minimize false negative results. PROCEDURES/ADDENDA HPV Testing (Requested) Ordered Date: 07/08/2022 A. PAP SMEAR (SUREPATH) CE: Human Papilloma Virus Test NEGATIVE for high-risk Human Papilloma Virus types 16, 18, 45 and the Other high risk probe set (Includes 31, 33, 35, 39, 51, 52, 56, 58, 59, 66, 68) Note: Testing performed by [facility] HR-HPV analysis. Clinical correlation is advised. This HPV test was performed at [facility], [address] [place] [address]. This test has been FDA approved for SurePath cervical cytology specimens. The accuracy and precision of this test for all other specimen sources has been verified in the Cytopathology Laboratory of the [facility] and has not been cleared or approved by the U.S. Food and Drug Administration. Clinical correlation is advised. CLINICAL HISTORY Date of Last Menstrual Period: 06-19-2022 Menstrual History: Kelsey-Menopausal Other Clinical Conditions: Screening Pap SPECIMEN SOURCE A: PAP SMEAR (SUREPATH) CE Patient Name: YARIEL MARIE : 1970 (Age: 52) Sex: F Institution: [facility] Location: [facility] Date of Collection: 07/07/2022 Date of Reported: 07/12/2022 18:58 Results to: Brie Valerio MSN, BSN us Brie Valerio EXCHANGE ADMINISTRATOR CYTOLOGY ORDERABLES Final Resul t SEE NARRATIVE * Outside Glucose,Fasting (08/30/2019) Glucose, fasting - External 92 65 - 99 mg/dL us Historical Provider LAB BLOOD ORDERABLES Kati l Result from Last 3 Months or Most Recently Relevant to Health Maintenance Insurance [facility]CO [facility] [place] [facility] [address] [place] [address] [address] [place] [address] ACO [facility]CO [facility]CO [facility] ACO [facility] ACO Advance Directives For more information, please contact: [phone] (9AM - 5PM [facility], Tuesday-Tuesday) * Full Code (Latest Code Status on File) Date Activated Date Inactivated Comments 05/28/2024 9:01 AM Question Answer Comments Code Status Confirmed With: Patient Care Teams Charter Coordinator Relationship Specialty Start Date End Date Eddy Cruz PA-C [address] [place] [id number] PCP - General Physician Legal Executive 09/02/23 Luther Bertrand DO [address] [place] [address], [address] [place] [address] [email or web address] Allergy and Immunology 01/17/24 Jordan Heredia MD [address] [place] [address] Orthopedic Surgery 02/07/24 Uriel Blanco MD [address] [place] [address] [email or web address] Insurance Assigned Provider 12/22/24 Additional Source Comments The information contained in this document represents components of the legal health record. It is not the complete legal health record.[facility]
--- OUTSIDE RECORDS SUMMARY | 2025-01-10 10:41 | XMS_ITS | Encounter Summary ---
Author Organization [facility] Address [address] [place] [address] [place] [address] Phone Care Team Providers Care Chemical Operator Name Role Phone Eddy Cruz PA-C Primary Care Provider [phone] Luther Bertrand DO Unavailable [phone] Jordan Heredia MD Unavailable [phone] Uriel Blanco MD Unavailable Encounter Details Date Type Department Care Team (Late st Contact Info) Description 04/05/2024 Prep for Surgery [facility] General Surgical Care [address] [place] [address] Brandy Archibald MD [address] [facility], 2nd [place] [address] [email or web address] Mass of upper outer quadrant of right breast (Primary Dx) Social History Tobacco Use Types Packs/Day Years [...] high school, GED, job training, learning the Moroccan language, technical skills, or developing parenting skills)? [...] Description 01/22/2025 10:40 AM EST Office Visit [facility] Internal Medicine [address] [place] [address] Eddy Cruz PA-C [address] [place] [address] [email or web address] documented as of this encounter Visit Diagnoses Diagnosis Mass of upper outer quadrant of right breast- Primary documented in this encounter Additional Health Concerns Infection Onset Date Last Indicated Resolved Time COVID-19 03/16/2024 03/16/2024 04/06/2024 1:21 AM EST Assessment Noted Time PHQ-9 Depression Total Score: 7 07/08/19 23 11:06 AM EDT PHQ-2 Depression Total Score: 2 01/10/20 24 8:56 PM EST documented as of this encounter Care Teams Chemical Operator Relationship Specialty Start Date End Date Eddy Cruz PA-C [address] [place] [address] PCP - General Physician Mortgage Loan Closer 09/02/23 Luther Bertrand DO [address] [place] [address], [address] [place] [address] [email or web address] Allergy and Immunology 01/17/24 Jordan Heredia MD [address] [place] [address] Orthopedic Surgery 02/07/24 Uriel Blanco MD [address] [place] [id number] [email or web address] Insurance Assigned Provider 12/22/24 documented as of this encounter Additional Source Comments The information contained in this document represents components of the legal health record. It is not the complete legal health record.[facility]
== END 2025-01-10 09:25 | disposition home or self-care (01) ==
LOC: HO.LAB 09:24
PROVIDERS: PCP Physician Assistant Surgical; Visit Provider Physician Assistant Surgical
DX: Z00.00 Encounter for general adult medical examination without abnormal findings (principal)
CPT/HCPCS: 36415; 80053; 80061; 84443

== ENCOUNTER 2025-01-24 09:24 | Outpatient (REF) | payer MEDICAID, SELFPAY ==
--- OUTSIDE RECORDS SUMMARY | 2025-01-22 10:40 | XMS_ITS | Encounter Summary ---
Author Organization [facility] Address [address] [place] [address] Phone Care Team Providers Care Pipeline Integrity Engineer Name Role Phone Eddy Cruz PA-C Primary Care Provider [phone] Luther Bertrand DO Unavailable [phone] Jordan Heredia MD Unavailable [phone] Uriel Blanco MD Unavailable Reason for Referral * Medication Prior Authorization - Closed Specialty Diagnoses / Procedures Referred By Garrett overton Referred To Contact Eddy Cruz PA-C [address] [place] [address] Phone: tel: fax: [email or web address] Referral ID Status Reason Start Date Expiration Date Visits Re quested Visits Authorized [id number] Closed 1 1 Reason for Visit * Reason Comments Annual Exam Encounter Details Date Type Department Care Team (Late st Contact Info) Description 01/22/2025 10:40 AM EST Office Visit [facility] Primary Care Clinic [address] [place] [address] Eddy Cruz PA-C [address] [place] [address] Routine general medical examination at a health [...] high school, GED, job training, learning the Mozambican language, technical skills, or developing parenting skills)? [...] nerve dysfunction) noted. Patient was referred to [facility] who has her currently [...] 05/28/2024 Performed by Brandy Archibald MD at [facility] OR BREAST NEEDLE BIOPSY Left 07/2021 benign. top hat. 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 No palpable cervical adenopathy. Skin: Ruma, warm, dry. No visible rashes, ulcers or [...] would like to have this completed at [facility]. Routine general medical examination at a [...] the date of the encounter. This includes kjvq-ve-yokd time during the visit as well as non elsa-gv-[id number] time spent on chart review, documentation, and [...] nerve dysfunction) noted. Patient was referred to [facility] who has her currently on Flexeril 10 mg p.o. 3 times daily as needed muscle spasms and gabapentin 600 mg twice daily. She will continue to this current regimen and continue to follow-up with [facility] * Assessment & Plan [...] would like to have this completed at [facility]. documented in this encounter Plan of Treatment Upcoming Encounters Date Type Department Care Team (Late st Contact Info) Description 01/27/2026 10:40 AM EST Office Visit [facility] Primary Care Clinic [address] [place] [address] Eddy Cruz PA-C [address] [place] [address] documented as of this encounter Procedures Procedure [...] documented as of this encounter Care Teams Pipeline Integrity Engineer Relationship Specialty Start Date End Date Eddy Cruz PA-C [address] [place] [address] [email or web address] PCP - General Physician Preload Supervisor 09/02/23 Luther Bertrand DO [address] [place] [address], [address] [place] [address] [email or web address] Allergy and Immunology 01/17/24 Jordan Heredia MD [address] [place] [address] Orthopedic Surgery 02/07/24 Uriel Blanco MD [address] [place] [address] Insurance Assigned Provider 12/22/24 documented as of this encounter Additional Source Comments The information contained in this document represents components of the legal health record. It is not the complete legal health record.[facility]
--- NOTE | ~2025-01-24 | XR_ITS ---
EXAMINATION: XR LUMBOSACRAL SPINE CLINICAL INFORMATION: spondylosis COMPARISON: 04/12/2024, 05/18/2023. TECHNIQUE: 5 views of the lumbar spine, inclusive of bilateral oblique views, were obtained. FINDINGS: There is no significant scoliosis. There is mild straightening of the normal lordosis. There is no fracture, compression deformity, or suspicious bone lesion. There is a grade 1 spondylolisthesis at L5-S1, measuring approximately 7 mm. There are full-thickness L5 pars defects. No additional subluxations or pars defects present. Facets otherwise appear normally aligned and unremarkable in appearance. Moderate to severe disc degeneration at L5-S1. The remainder of the intervertebral discs appear essentially normal . The SI joints appear normal. The sacrum is intact. XR/XR lumbar spine 4V min IMPRESSION: 1. Grade 1 spondylolisthesis L5-S1, similar to prior exams. 2. The remainder of the examination is essentially normal. Electronically signed by: Sarmad Santos MD 01/24/2025 09:54 AM ZAC
--- OUTSIDE RECORDS SUMMARY | 2025-01-24 10:48 | XMS_ITS | Encounter Summary ---
Author Organization [facility] Address [address] [facility] [address] [place] [address] Phone Care Team Providers Care Portable Machine Cutter Name Role Phone Eddy Cruz PA-C Primary Care Provider [phone] Luther Bertrand DO Unavailable [phone] Jordan Heredia MD Unavailable [phone] Uriel lBanco MD Unavailable Encounter Details Date Type Department Care Team (Late st Contact Info) Description 01/18/2024 Procedure Pass [facility], [address] [id number] Social History Tobacco Use Types Packs/Day Years [...] high school, GED, job training, learning the Grenadian language, technical skills, or developing parenting skills)? [...] Description 01/27/2026 10:40 AM EST Office Visit [facility] [address] [place], [place] [phone] Eddy Cruz PA-C [address] [place] [address] documented as of this encounter Visit Diagnoses Not on filedocumented in this encounter Additional Health Concerns Infection Onset Date Last Indicated Resolved Time COVID-19 03/16/2024 03/16/2024 04/06/2024 1:21 AM EST Assessment Noted Time PHQ-9 Depression Total Score: 7 07/08/19 23 11:06 AM EDT PHQ-2 Depression Total Score: 2 01/10/20 24 8:56 PM EST documented as of this encounter Care Teams Portable Machine Cutter Relationship Specialty Start Date End Date Eddy Cruz PA-C [address] [place], [place] PCP - General Physician Computer Forensics Technician 09/02/23 Luther Bertrand DO [address] [place] [address], [address] [address] [email or web address] Allergy and Immunology 01/17/24 Jordan Heredia MD [address] [place] [address] Orthopedic Surgery 02/07/24 Uriel Blanco MD [address] [place] [address] [email or web address] Insurance Assigned Provider 12/22/24 documented as of this encounter Additional Source Comments The information contained in this document represents components of the legal health record. It is not the complete legal health record.[facility]
--- OUTSIDE RECORDS SUMMARY | 2025-01-24 10:48 | XMS_ITS | Clinical Summary ---
Author Organization [employer] Address [address] [facility] 7t [place] [address] Care Team Providers Care Home And School Visitor Name Role Phone Unavailable Primary Care Provider [...] Screening 1972 SDOH Screening 1972 Sigmoidoscopy 1972 Disability Screening 1972 Alcohol/Substance Use Screening 1984 Hepatitis C Screening 01/09/1990 Hepatitis B Vaccines (1 of 3 - 19+ 3-dose series) 01/09/1991 Pap Smear 01/09/1993 Cervical Cancer Screening 01/09/2002 HPV/Cotest 01/09/2002 RSV Patients and Patients Aged 60 years or older (1 - Risk 50-74 years 1-dose series) 01/09/2022 Mammogram 06/16/2022 06/16/2020, 08/03/2017 Dental Oral Exam 10/23/2022 04/21/2022 Dental X-Ray: Bitewings 04/23/2023 04/21/2022 Tobacco Screening 12/09/2023 12/08/2022 COVID-19 Vaccine ( season) 2024 02/17/2022, 01/23/2021, 05/21/2020, Additional history exists Influenza Vaccine (#1) 2024 , 03/28/2021, 02/06/2015, Additional history exists Dental X-Ray: Full Mouth 04/22/2025 04/21/2022 DTaP/Tdap/Td Vaccines (3 - Td or Tdap) 01/16/2034 01/17/2024, 12/04/2013, 10/23/2011 Pneumococcal Vaccine: 50+ Years Completed 07/07/2022, 08/21/2019 Zoster Vaccines Completed 04/25/2023, 02/17/2023 HIB Vaccines Aged Out No longer eligi [...] patient's age to complete this topic Meningococcal B Vaccine Aged Out No l onger eligible based on patient's age to complete [...] Most Recently Relevant to Health Maintenance Insurance [facility] MEDICAID STAND ADULT
--- OUTSIDE RECORDS SUMMARY | 2025-01-24 10:48 | XMS_ITS | Encounter Summary ---
Author Organization [facility] Address [address] [place] [address] Phone Care Team Providers Care Shingle Weaver Name Role Phone Eddy Cruz PA-C Primary Care Provider [phone] Luther Bertrand DO Unavailable [phone] Jordan Heredia MD Unavailable [phone] Uriel Blanco MD Unavailable Reason for Visit * Reason Onset Date Comments Medication Prior Authorization 01/22/2025 A jose rowland Encounter Details Date Type Department Care Team (Late st Contact Info) Description 01/22/2025 Telephone [facility] Primary Care Clinic [address] [place], [place] [phone] Casanova, Sean [address] [place] [address] [email or web address] Medication Prior Authorization (Arnuity ellipta) Social History Tobacco Use Types Packs/Day Years Used Date Smoking Tobacco: Every Day Cigarettes 0.5 20 Started: 01/22/2005 Smokeless Tobacco: Never Comments:4 cigarettes or les s daily, x 20 yrs Alcohol Use Standard [...] high school, GED, job training, learning the Monegasque language, technical skills, or developing parenting skills)? [...] as of this encounter Progress Notes * Sean Casanova - 01/22/2025 2:17 PM EST Insurance prefer branded Arnuity Ellipta, called [facility] and they were able to get paid claim. documented in this encounter Plan of Treatment Upcoming Encounters Date Type Department Care Team (Late st Contact Info) Description 01/27/2026 10:40 AM EST Office Visit [facility] [address] [place] [address] Eddy Cruz PA-C [address] [place] [address] documented as of this encounter Visit Diagnoses Not on filedocumented in this encounter Additional Health Concerns Assessment Noted Time PHQ-9 Depression Total Score: 7 07/08/19 23 11:06 AM EDT PHQ-2 Depression Total Score: 0 01/16/20 25 2:55 PM EST documented as of this encounter Care Teams Shingle Weaver Relationship Specialty Start Date End Date Eddy Cruz PA-C [address] [place] [address] PCP - General Physician Advertising Teacher 09/02/23 Luther Bertrand DO [address] [place] [address], [address] [place] [address] [email or web address] Allergy and Immunology 01/17/24 Jordan Heredia MD [address] [address] Orthopedic Surgery 02/07/24 Uriel Blanco MD [address] [place] [address] [email or web address] Insurance Assigned Provider 12/22/24 documented as of this encounter Additional Source Comments The information contained in this document represents components of the legal health record. It is not the complete legal health record.[facility]
--- OUTSIDE RECORDS SUMMARY | 2025-01-24 10:48 | XMS_ITS | Encounter Summary ---
Author Organization [facility] Address [address] [facility] [address] [place] [address] Phone Care Team Providers Care Blast Furnace Checker Name Role Phone Eddy Cruz PA-C Primary Care Provider [phone] Luther Bertrand DO Unavailable [phone] Jordan Heredia MD Unavailable [phone] Uriel Blanco MD Unavailable Encounter Details Date Type Department Care Team (Late st Contact Info) Description 01/17/2024 Procedure Pass [facility], [address] [address] Social History Tobacco Use Types Packs/Day Years [...] high school, GED, job training, learning the South African language, technical skills, or developing parenting skills)? [...] Description 01/27/2026 10:40 AM EST Office Visit [facility] Primary Care Clinic [address] [place], [place] [phone] Eddy Cruz PA-C [address] [place] [address] documented as of this encounter Visit Diagnoses Not on filedocumented in this encounter Additional Health Concerns Infection Onset Date Last Indicated Resolved Time COVID-19 03/16/2024 03/16/2024 04/06/2024 1:21 AM EST Assessment Noted Time PHQ-9 Depression Total Score: 7 07/08/19 23 11:06 AM EDT PHQ-2 Depression Total Score: 2 01/10/20 24 8:56 PM EST documented as of this encounter Care Teams Blast Furnace Checker Relationship Specialty Start Date End Date Eddy Cruz PA-C [address] [place], [place] PCP - General Physician Gun Examiner 09/02/23 Luther Bertrand DO [address] [place] [address], [address] [address] [email or web address] Allergy and Immunology 01/17/24 Jordan Heredia MD [address] [place] [address] Orthopedic Surgery 02/07/24 Uriel Blanco MD [address] [place] [address] [email or web address] Insurance Assigned Provider 12/22/24 documented as of this encounter Additional Source Comments The information contained in this document represents components of the legal health record. It is not the complete legal health record.[facility]
--- OUTSIDE RECORDS SUMMARY | 2025-01-24 10:49 | XMS_ITS | Encounter Summary ---
Author Organization [email or web address] [facility] Address [address] [facility] 7t [place] [address] Care Team Providers Care Sister Superior Name Role Phone Unavailable Primary Care Provider Unavailabl e Encounter Details Date Type Department Care Team (Late st Contact Info) Description 05/17/2022 Abstract [facility] [address] [place] [address] Georgi, Jessica [address] [place] [address] Social History Tobacco Use Types Packs/Day Years [...]
--- OUTSIDE RECORDS SUMMARY | 2025-01-24 10:49 | XMS_ITS | Encounter Summary ---
Author Organization [facility] Address [address] [facility] [address] [place] [address] Phone Care Team Providers Care Welder First Class Name Role Phone Eddy Cruz PA-C Primary Care Provider [phone] Luther Bertrand DO Unavailable [phone] Jordan Heredia MD Unavailable [phone] Uriel Blanco MD Unavailable Encounter Details Date Type Department Care Team (Late st Contact Info) Description 05/28/2024 Procedure Pass [place] Admitting Dept - Virtual Department [address] [place] [address] Social History Tobacco Use Types Packs/Day Years [...] high school, GED, job training, learning the Ukrainian language, technical skills, or developing parenting skills)? [...] Description 01/27/2026 10:40 AM EST Office Visit [facility] Primary Care Clinic [address] [place], [place] [phone] Eddy Cruz PA-C [address] [place] [address] documented as of this encounter Visit Diagnoses Not on filedocumented in this encounter Additional Health Concerns Assessment Noted Time PHQ-9 Depression Total Score: 7 07/08/19 23 11:06 AM EDT PHQ-2 Depression Total Score: 2 01/10/20 24 8:56 PM EST documented as of this encounter Care Teams Welder First Class Relationship Specialty Start Date End Date Eddy Cruz PA-C [address] [place] [address] PCP - General Physician Farm General Manager 09/02/23 Luther Bertrand DO [address] [place] [address], [address] [place], [place] [id number] [email or web address] Allergy and Immunology 01/17/24 Jordan Heredia MD [address] [place] [address] Orthopedic Surgery 02/07/24 Uriel Blanco MD [address] [place] [address] [phone] Insurance Assigned Provider 12/22/24 documented as of this encounter Additional Source Comments The information contained in this document represents components of the legal health record. It is not the complete legal health record.[facility]
--- OUTSIDE RECORDS SUMMARY | 2025-01-24 10:49 | XMS_ITS | Encounter Summary ---
Author Organization [employer] [facility] Address [address] [place] [address] [address] [place] [address] Care Team Providers Care Heel Top Lift Splitter Name Role Phone Unavailable Primary Care Provider Unavailabl e Encounter Details Date Type Department Care Team (Latest Contact Info) Description 08/17/2018 Abstract [facility] CONVERSIONS Dental, Provider, DDS Social History Tobacco [...]
--- OUTSIDE RECORDS SUMMARY | 2025-01-24 10:49 | XMS_ITS | Encounter Summary ---
Author Organization [employer] [facility] Address [address] [facility] 7t [place] [address] Care Team Providers Care Shoe Designer Name Role Phone Unavailable Primary Care Provider Unavailabl e Encounter Details Date Type Department Care Team (Late st Contact Info) Description 05/05/2022 Abstract [facility] [address] [place] [address] Georgi, Jessica [address] [place] [address] Social History Tobacco Use Types Packs/Day Years [...]
--- OUTSIDE RECORDS SUMMARY | 2025-01-24 10:49 | XMS_ITS | Encounter Summary ---
Author Organization [employer] [facility] Address [address] [facility] 7t [place] [address] Care Team Providers Care Electrical Products Sales Engineer Name Role Phone Unavailable Primary Care Provider Unavailabl e Encounter Details Date Type Department Care Team (Late st Contact Info) Description 05/17/2022 Abstract [facility]ULT [facility] [address] [place] [address] Georgi, Jessica [address] [place] [address] Social History Tobacco Use Types Packs/Day Years [...]
--- OUTSIDE RECORDS SUMMARY | 2025-01-24 10:50 | XMS_ITS | Encounter Summary ---
Author Organization [facility] Address [address] [facility] [address] [place] [address] Phone Care Team Providers Care Commercial Designer Name Role Phone Eddy Cruz PA-C Primary Care Provider [phone] Luther Bertrand DO Unavailable [phone] Jordan Heredia MD Unavailable [phone] Uriel Blanco MD Unavailable Encounter Details Date Type Department Care Team (Late st Contact Info) Description 01/11/2025 Orders Only [facility] [address] [place] [address] Provider, MD Emil [address] [place] [address] Social History Tobacco Use Types Packs/Day Years [...] high school, GED, job training, learning the Palauan language, technical skills, or developing parenting skills)? [...] housing situation today? I have jill ramos 01/15/2025 How many times have you move [...] 01/27/2026 10:40 AM EST Office Visit [facility] [address] [place] [address] Eddy Cruz PA-C [address] [place] [address] [email or web address] documented as of this encounter Procedures Procedure Name Priority Date/Time Associated Diagnosis Comments OUTSIDE LAB Routine 2025 2:20 PM EST OUTSIDE TRIGLYCERIDES Routine 2025 OUTSIDE TSH LEVEL Routine 2025 OUTSIDE POTASSIUM LEVEL Routine 2025 OUTSIDE LDL Routine 2025 OUTSIDE GLUCOSE FASTING Routine 2025 OUTSIDE SERUM CREATININE LEVEL Routine 2025 OUTSIDE ALT LEVEL Routine 2025 OUTSIDE TOTAL CHOLESTEROL Routine 2025 OUTSIDE HDL Routine 2025 documented in this encounter Results * Outside Lab (Non-MGB) (2025 2:20 PM EST) us Historical Provider LAB BLOOD BKR ORDERABLES Final Result * Outside Potassium Level (2025) Pathologist [facility] Potassium level - External 4.0 3.4 - 5.0 mmol/L Result [facility] MD LAB BLOOD ORDERABLES Kati l Result * Outside LDL (2025) [facility] LDL - External 136 50 - 250 mg/dL Result [facility] MD LAB BLOOD ORDERABLES Kati l Result * Outside TSH Level (2025) [facility] TSH - External 0.84 0.5 - 5 uIU/L Result [facility] LAB BLOOD ORDERABLES Kati l Result * Outside ALT Level (2025) [facility] ALT - External 17 5 - 30 U/L Result [facility] LAB BLOOD ORDERABLES Kati l Result * (ABNORMAL) Outside Total Cholesterol (2025) [facility] Cholesterol, total - External 209(A) <=200 mg/dL Result [facility] LAB BLOOD ORDERABLES Kati l Result * Outside Glucose,Fasting (2025) [facility] Glucose, fasting - External 99 65 - 99 mg/dL Result [facility] LAB BLOOD ORDERABLES Kati l Result * Outside HDL (2025) [facility] HDL - External 51 40 - 80 mg/dL Result [facility] MD LAB BLOOD ORDERABLES Kati l Result * (ABNORMAL) Outside Serum Creatinine Level (2025) [facility] Creatinine, serum - External 0.59(A) 0.8 - 1.3 mg/dL Result [facility] MD LAB BLOOD ORDERABLES Kati l Result * Outside Triglycerides (2025) [facility] Triglycerides - External 114 35 - 150 mg/dL Result [facility] LAB BLOOD ORDERABLES Kati l Result documented in this encounter Visit Diagnoses Not on filedocumented in this encounter Additional Health Concerns Assessment Noted Time PHQ-9 Depression Total Score: 7 07/08/19 23 11:06 AM EDT PHQ-2 Depression Total Score: 2 01/10/20 24 8:56 PM EST documented as of this encounter Care Teams Commercial Designer Relationship Specialty Start Date End Date Eddy Cruz PA-C [address] [place] [address] [email or web address] PCP - General Physician Staff Developer 09/02/23 Luther Bertrand DO [address] [place] [address], [address] [place] [address] Allergy and Immunology 01/17/24 Jordan Heredia MD [address] [place] [address] Orthopedic Surgery 02/07/24 Uriel Blanco MD [address] [place] [address] [email or web address] Insurance Assigned Provider 12/22/24 documented as of this encounter Additional Source Comments The information contained in this document represents components of the legal health record. It is not the complete legal health record.[facility]
--- OUTSIDE RECORDS SUMMARY | 2025-01-24 10:50 | XMS_ITS | Clinical Summary ---
Author Organization [facility] Address [address] [place] [address] Phone Care Team Providers Care Production Supv Name Role Phone Eddy Cruz PA-C Primary Care Provider [phone] Luther Bertrand DO Unavailable [phone] Jordan Heredia MD Unavailable [phone] Uriel Blanco MD Unavailable Allergies Active Allergy Reactions Criticality Noted Date Comments Animal Dander Shortness Of Breath,Sneezing,Wheezing High 03/01/2024 Grass Pollen 03/01/2024 House Dust Mite Shortness Of Breath,Sneezing,Wheezing High 03/01/2024 Mold 03/01/2024 Tree And Shrub Pollen Sneezing,Wheezing 025 [place] Pollen 03/01/2024 Medications ibuprofen (ADVIL,MOTRIN) 600 MG tablet Take 1 tablet (600 mg total) by mouth every 8 (eight) hours as needed for pain (specific location in comments) (with food). 90 tablet 02/13/19 20 Active inhaler spacing device (AEROCHAMBER,MONO ATHERITE) Spcr Use as directed 1 each 1 04/15/19 23 Active acetaminophen (TYLENOL) 325 mg tablet Take 2 tablets (650 mg total) by mouth every 4 (four) hours as needed for pain (specific location in comments). 05/29/19 25 Active gabapentin (NEURONTIN) 300 MG capsule Take 600 mg by mouth 2 (two) times a day. Qhs x 3 days then 2 capsules daily 08/02/19 25 Active albuterol (VENTOLIN HFA) 90 mcg/actuation inhalerIndicatio ns:Mild persistent asthma without complication INHALE 2 PUFFS BY MOUTH 3 TIMES A DAY 18 g 2 09/19/19 25 Active cetirizine (ZYRTEC) 10 MG tabletIndication s:Seasonal allergic rhinitis due to pollen TAKE 1 TABLET BY MOUTH EVERY DAY 90 tablet 3 09/29/19 25 Active famotidine (PEPCID) 20 MG tabletIndication s:Gastroesophage al reflux disease without esophagitis TAKE 1 TABLET BY MOUTH TWICE A DAY 180 tablet 3 01/08/20 25 Active fluticasone furoate (ARNUITY ELLIPTA) 100 mcg/actuation DsDv Inhale 1 puff into the lungs daily. 30 each 2 01/23/20 25 Active cyclobenzaprine (FLEXERIL) 10 MG tablet Take 1 tablet (10 mg total) by mouth 3 (three) times a day as needed (muscle spasms). 21 tablet 01/23/20 25 Active fluticasone furoate (ARNUITY ELLIPTA) 100 mcg/actuation DsDv Inhale 1 puff into the lungs daily. 30 each 01/17/20 24 025 Discontinued(Re order) famotidine (PEPCID) 20 MG tabletIndication s:Gastroesophage al reflux disease without esophagitis Take 1 tablet (20 mg total) by mouth 2 (two) times a day. 180 tablet 3 01/17/20 24 025 Discontinued LORazepam (ATIVAN) 1 MG tablet TAKE 1-2 TABLETS BY MOUTH 1 HOUR BEFORE INJECION 05/24/19 25 025 Discontinued(No CancelRX) cyclobenzaprine (FLEXERIL) 10 MG tablet TAKE 1 TABLET (10 MG) BY MOUTH 3 TIMES A DAY NEEDED FOR MUSCLE SPASM 21 tablet 09/29/19 25 025 Discontinued(Re order) Active Problems Problem Noted Date Diagnosed Date History of dermoid cyst excision 06/15/2024 Routine general medical exam ination at a health care facility 01/17/2024 Assessment & Plan (01/22/2025 11:22 AM EST): Patient underwent laboratory data prior to her office visit which was discussed during the appointment. She is up-to-date with her colonoscopy Mammogram order placed Annual physical 1 year Assessment & Plan (01/17/2024 12:40 PM EST): Obtain CMP, fasting glucose, lipid panel and TSH Follow-up in 1 year annual physical Patient given Td vaccination Patient is due for ENTRY LEVEL INSTALLATION TECHNICIAN visit and has it scheduled through [facility]'s. Mammogram to be completed at [facility] GI referral for colonoscopy Breast cancer screening by mammogram 01/17/2024 Assessment & Plan (01/22/2025 11:21 AM EST): Patient with a history of breast abscess who had been seen and followed by surgery. Her last mammogram was back in February 2024. She is due. I have placed an order for diagnostic bilateral mammogram she would like to have this completed at [facility]. Assessment & Plan (01/17/2024 12:40 PM EST): Mammogram referral [facility] Cervical radiculopathy 11/07/2023 Assessment & Plan (01/22/2025 12:14 PM EST): Patient has chronic back pain which is [...] nerve dysfunction) noted. Patient was referred to [facility] who has her currently on Flexeril 10 mg p.o. 3 times daily as needed muscle spasms and gabapentin 600 mg twice daily. She will continue to this current regimen and continue to follow-up with [facility] Assessment & Plan (01/17/2024 12:39 PM EST): [...] nerve dysfunction). It was recommended she see [facility] and she has an [...] would like it to be done at [place] -Continue ibuprofen and Flexeril as needed Flu [...] navigate the insurance to determine her co-pay Allergic rhinitis 02/21/2017 Assessment & Plan (01/17/2024 12:38 PM EST): Continue Zyrtec 10 mg p.o. daily. Patient was seen by ios software engineer and is to undergo allergy shots for numerous allergens. Assessment & Plan (11/07/2023 11:21 AM EDT): Continue Zyrtec 10 mg p.o. daily Allergy testing with Dr. Bertrand Asthma 02/21/2017 Assessment & Plan (01/22/2025 12:17 PM EST): Patient with a history of asthma who is on albuterol MDI as needed and Arnuity elliptica however ran out of the Arnuity Ellipta and did not have it refilled. She has been experiencing a cough which is nonproductive at night. However on physical exam she is noted to not have any wheezing therefore I do not feel that she needs steroids at this time. However she does need to be placed back on her maintenance inhaler. - Arnuity Ellipta 1 puff daily sent to pharmacy -Patient to continue albuterol MDI. Assessment & Plan (01/17/2024 12:37 PM EST): Continue annuity Ellipta, albuterol MDI as needed Assessment & Plan (11/07/2023 11:21 AM EDT): Continue Ventolin MDI as needed and Arnuity GERD (gastroesophageal reflux disease) Assessment & Plan (01/22/2025 11:22 AM EST): Her GERD is well-managed with Pepcid 20 mg p.o. twice daily which will be continued Assessment & Plan (01/17/2024 12:37 PM EST): Continue Pepcid 20 mg p.o. twice daily Assessment & Plan (11/07/2023 11:21 AM EDT): Continue Pepcid 20 mg p.o. twice daily Resolved Problems Problem Noted Date Diagnosed Date Resolved Date Tachycardia 07/06/2024 01/22/2025 Assessment & Plan (08/02/2024 10:53 AM EDT): [...] to feel diaphoretic chest pain or dizziness. Abscess of right breast 03/08/202401/07 Assessment & Plan (03/08/2024 10:31 AM EST): [...] patient needs further imaging and/or biopsy completed. 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 Acute exacerbation of chronic low back pain 08/03/2018 01/22/2025 Excessive consumption of soda pop 06/30/2018 11/07/2023 Chronic right shoulder pain 06/30/2018 11/07/2023 Seasonal allergic rhinitis due to pollen 02/21/2017 11/07/2023 Tobacco use disorder 02/21/2017 024 Encounters Date Type Department Care Team Description 01/22/2025 10:40 AM EST Office Visit [facility] [address] [facility] [place] [address] Eddy Cruz PA-C Routine general medical examination at a health care facility (Primary Dx); Breast cancer screening by mammogram; Gastroesophageal reflux disease without esophagitis; Cervical radiculopathy; Mild persistent asthma without complication 01/22/2025 Telephone [facility] [address] [facility] [place] [place] [address] Casanova, Sean Medication Prior Authorization (Arnuity ellipta) 01/11/2025 Orders Only [facility] [address] [facility] [place] [place] [address] Provider, MD Emil 01/07/2025 Telephone [facility] [address] [facility] [place] [place] [address] Eddy Cruz PA-C Labs 01/07/2025 Refill [facility] [address] [facility] [place] [place] [address] Eddy Cruz PA-C Medication Refill 11/05/2024 [facility] RISK SCORES SYSTEM GENERATED External System Generated Encounter [address] [place] [address] Unknown, Unknown, from Last 3 Months Immunizations [...] high school, GED, job training, learning the Syriac language, technical skills, or developing parenting skills)? [...] is your housing situation today? I have jilllinda ramos 01/15/2025 How many times have you [...] Pulse 82 01/22/2025 10:37 AM EST Temperature 36.4 C (97.6 F) 07/06/2024 2:21 PM EDT Respiratory Rate 19 01/22/2025 10:37 AM EST Oxygen Saturation 97% 01/22/2025 10:37 AM EST Inhaled Oxygen Concentration - - Weight 71 kg (156 lb 9.6 oz) 01/22/2025 10:37 AM EST Height 144.8 cm (4' 9 ) 01/22/2025 10:37 AM EST Body Mass Index 33.89 01/22/2025 10:37 AM EST Plan of Treatment Upcoming Encounters Date Type Department Care Team (Late st Contact Info) Description 01/27/2026 10:40 AM EST Office Visit [facility] [address] [place] [address] Eddy Cruz PA-C [address] [place] [address] [email or web address] Maintenance Due Date Last Done Comments COLOGUARD 01/09/2017 FIT TEST 01/09/2017 FOBT 01/09/2017 SIGMOIDOSCOPY 01/09/2017 VIRTUAL COLONOSCOPY 01/09/2017 RSV VACCINE (1 - Risk 50-74 years 1-dose series) 01/09/2022 COVID-19 VACCINE ( season) 2024 02/17/2022, 01/23/2021, 05/21/2020, Additional history exists PAP SMEAR 07/07/2025 07/07/2022, 05/08, 05/24/2017 DEPRESSION SCREENING 01/15/2026 01/15/2025, 07/08/19 23 SMOKING Hx and SMOKELESS TOBACCO SCREENING 01/22/2026 01/22/2025 MAMMOGRAM 01/22/2027 01/22/2025, 02/08, 02/28/2024, Additional history exists SCREENING FOR DIABETES 01/11/2028 , 01/17/2024, 08/30/2019, Additional history exists COLONOSCOPY 06/13/2029 06/13/2024 COLORECTAL CANCER SCREENING 06/13/2029 LIPID PANEL 2030 2025, 05/2024, 2025, Additional history exists Adult Td,Tdap Booster 01/16/2034 01/17/2024 , 12/04/2013, 10/23/2011 HEPATITIS C SCREENING Completed 07/07/2022, 023 HIV ONE-TIME SCREENING (18-65 YEARS) Completed 07/07/2022 PNEUMOCOCCAL VACCINES (50+ years) Completed 07/07/2022, 08/21/2019 ZOSTER VACCINES Completed 04/25/2023, 02/17/2023 INFLUENZA VACCINE Completed 11/26/2024, , 11/07/2023, Additional history exists HEPATITIS A VACCINES Aged [...] AM EST Breast cancer screening by mammogram OUTSIDE LAB Routine 2025 2:20 PM EST OUTSIDE POTASSIUM LEVEL Routine 2025 OUTSIDE LDL Routine 2025 OUTSIDE TSH LEVEL Routine 2025 OUTSIDE ALT LEVEL Routine 2025 OUTSIDE TOTAL CHOLESTEROL Routine 2025 OUTSIDE GLUCOSE FASTING Routine 2025 OUTSIDE HDL Routine 2025 OUTSIDE SERUM CREATININE LEVEL Routine 2025 OUTSIDE TRIGLYCERIDES Routine 2025 HM COLONOSCOPY FOR RESULT ENTRY ONLY Routine 06/13/2024 11:19 AM EDT HEPATITIS C ANTIBODY, QUALITATIVE Routine 07/07/2022 11:51 AM EDT Need for hepatitis C screening test PAP TEST Routine 07/07/2022 12:00 AM EDT from Last 3 Months or Most Recently Relevant to Health Maintenance Results * Outside Lab (Non-MGB) (2025 2:20 PM EST) Result [facility] LAB BLOOD BKR ORDERABLES Final Result * Outside Triglycerides (2025) Pathologist [facility] Triglycerides - External 114 35 - 150 mg/dL Result [facility] LAB BLOOD ORDERABLES Kati l Result * Outside TSH Level (2025) [facility] TSH - External 0.84 0.5 - 5 uIU/L Result [facility] MD LAB BLOOD ORDERABLES Kati l Result * Outside Potassium Level (2025) [facility] Potassium level - External 4.0 3.4 - 5.0 mmol/L Result [facility] LAB BLOOD ORDERABLES Kati l Result * Outside LDL (2025) [facility] LDL - External 136 50 - 250 mg/dL Result [facility] MD LAB BLOOD ORDERABLES Kati l Result * Outside Glucose,Fasting (2025) [facility] Glucose, fasting - External 99 65 - 99 mg/dL Result [facility] LAB BLOOD ORDERABLES Kati l Result * (ABNORMAL) Outside Serum Creatinine Level (2025) [facility] Creatinine, serum - External 0.59(A) 0.8 - 1.3 mg/dL Result [facility] MD LAB BLOOD ORDERABLES Kati l Result * Outside ALT Level (2025) [facility] ALT - External 17 5 - 30 U/L Result [facility] MD LAB BLOOD ORDERABLES Kati l Result * (ABNORMAL) Outside Total Cholesterol (2025) [facility] Cholesterol, total - External 209(A) <=200 mg/dL Result [facility] LAB BLOOD ORDERABLES Kati l Result * Outside HDL (2025) HDL - External 51 40 - 80 mg/dL Result [facility] Historical Provider LAB BLOOD ORDERABLES Kati l Result * HM COLONOSCOPY FOR RESULT ENTRY ONLY (06/13/2024 11:19 AM EDT) Result [facility] Historical Provider HEALTH MAINTENANCE Final Result * BI MAMMOGRAM DIAGNOSTIC WITH TOMOSYNTHESIS WITH CAD (BILATERAL) (02/28/2024 2:53 PM EST) Anatomical Region Laterality Modality Breast Left, Breast Right, Breast Bilateral Bila teral Mammography 02/28/2024 4:19 PM EST Addenda Addendum by Prema Lopez MD on 03/12/2024 3:46 PM EST ADDENDUM: Addendum: Prior outside mammograms from [facility] dated 12/17/2020, 06/29/2021 and 08/05/2022 have been received. There has been no interval change. Clinical follow-up to resolution for right breast skin abscess, currently being treated medically. BI-RADS 1 NEGATIVE Impressions 02/28/2024 4:22 PM EST 1. Outside prior mammograms are required for full evaluation, these were performed at [facility] and are being requested for comparison. [...] MG EXAMS Edited Result - Final * Hepatitis C antibody, qualitative (07/07/2022 11:51 AM EDT) HCV NON-REACTIV E NON-REACTI VE [facility] Blood 07/07/2022 11:5 1 AM EDT 07/07/2022 11:54 AM EDT Brie Valerio NP LAB BLOOD BKR ORDERABLES Final Result [address] [address] * Pap Test (07/07/2022 12:00 AM EDT) 07/07/2022 07/08/2022 8:2 8 AM EDT Narrative SEE NARRATIVE - 07/12/2022 6:58 PM EDT [address] [address] Dielectric Press Operator: Roxana Aaron MD ENTRY LEVEL INSTALLATION TECHNICIAN Cytology Report FINAL DIAGNOSIS A. PAP SMEAR [...] 59, 66, 68) Note: Testing performed by [employer] HR-HPV analysis. Clinical correlation is advised. This HPV test was performed at [facility], [address] [place] [address]. This test has been FDA approved for [facility] cervical cytology specimens. The accuracy and precision of this test for all other specimen sources has been verified in the Cytopathology Laboratory of the [facility] and has not been cleared or approved by the U.S. Food and Drug Administration. Clinical correlation is advised. CLINICAL HISTORY Date of Last Menstrual Period: 06-19-2022 Menstrual History: Kelsey-Menopausal Other Clinical Conditions: Screening Pap SPECIMEN SOURCE A: PAP SMEAR (SUREPATH) CE Patient Name: YARIEL ZHOU : 1970 (Age: 52) Sex: F Institution: [facility] Location: [facility] Date of Collection: 07/07/2022 Date of Reported: 07/12/2022 18:58 Results to: Brie Valerio MSN, BSN us Brie Valerio NP CYTOLOGY ORDERABLES Final Resul t SEE NARRATIVE from Last 3 Months or Most Recently Relevant to Health Maintenance [place] [address] [place] [address] ACO [facility] [place] [place] [id number] [facility] ACO ACO ACO ACO [facility] ACO O ACO [facility] ACO ACO [facility] ACO [facility] ACO [facility] ACO Advance Directives For more information, please contact: [phone] (9AM - 5PM [facility], Tuesday-Tuesday) * Full Code (Latest Code Status on File) Date Activated Date Inactivated Comments 05/28/2024 9:01 AM Question Answer Comments Code Status Confirmed With: Patient Care Teams Production Supv Relationship Specialty Start Date End Date Eddy Cruz PA-C [address] [place] [id number] [email or web address] PCP - General Physician Physiologist 09/02/23 Luther Bertrand DO [address] [place] [address], [address] [place] [address] [email or web address] All[facility] Immun[facility] 01/17/24 Jordan Heredia MD [address] [place] [address] Orthopedic Surgery 02/07/24 Uriel Blanco MD [address] [place] [address] [email or web address] Insurance Assigned Provider 12/22/24 Additional Source Comments The information contained in this document represents components of the legal health record. It is not the complete legal health record.[facility]
== END 2025-01-24 09:25 ==
LOC: HO.XRAY 09:24
PROVIDERS: PCP Physician Assistant Surgical; Visit Provider Physical Medicine & Rehabilitation
DX: M47.816 Spondylosis without myelopathy or radiculopathy, lumbar region (principal)
CPT/HCPCS: 72110

== ENCOUNTER → 2025-01-24 09:42 | Outpatient (BNV) | payer MEDICAID, SELFPAY | PROVIDERS: PCP Physician Assistant Surgical; Visit Provider Radiology Diagnostic Radiology | DX: M47.817 Spondylosis without myelopathy or radiculopathy, lumbosacral region (principal) | CPT/HCPCS: 72110 ==

== ENCOUNTER 2025-01-27 10:16 | Emergency (ER) | payer MEDICAID, SELFPAY ==
--- OUTSIDE RECORDS SUMMARY | 2025-01-22 10:40 | XMS_ITS | Encounter Summary ---
Author Organization [facility] Address [address] [place] [address] Phone Care Team Providers Care Skin Care Technician Name Role Phone Eddy Cruz PA-C Primary Care Provider [phone] Luther Bertrand DO Unavailable [phone] Jordan Heredia MD Unavailable [phone] Uriel Blanco MD Unavailable Reason for Referral * Medication Prior Authorization - Closed Specialty Diagnoses / Procedures Referred By Garrett overton Referred To Contact Eddy Cruz PA-C [address] [place] [address] Phone: tel: fax: mailto:@[employer] Referral ID Status Reason Start Date Expiration Date Visits Re quested Visits Authorized [id number] Closed 1 1 Reason for Visit * Reason Comments Annual Exam Encounter Details Date Type Department Care Team (Late st Contact Info) Description 01/22/2025 10:40 AM EST Office Visit [facility] Primary Care Clinic [address] [place] [address] Eddy Cruz PA-C [address] [place] [address] [email or web address] Routine general medical examination at a health care facility (Primary Dx); Breast cancer screening by mammogram; Gastroesophageal reflux disease without esophagitis; Cervical radiculopathy; Mild persistent asthma without complication Social History Tobacco Use Types Packs/Day Years Used Date Smoking Tobacco: Every Day Cigarettes 0.5 20 Started: 01/22/2005 Smokeless Tobacco: Never Tobacco Cessation:Ready to Q uit: Not Asked; Counseling Given: Not Answered Comments:4 cigarettes or less daily, x 20 yrs Alcohol Use Standard Drinks/Week Comments Yes 0 (1 standard drink = 0.6 oz pur e alcohol) 5-6 drinks, Monthly or less Child or Family Care Answer Date Record ed Do you have problems with on e of the following making it difficult for you to work, study, or receive health care? No 01/15/2025 Education Answer Date Recorded Are you interested in help w ith more adult education (for example, completing high school, GED, job training, learning the [place]i language, technical skills, or developing parenting skills)? No 01/15/2025 Are you concerned about learning? Not on file 01/15/2025 No 01/15/2025 Yes 01/15/2025 Food Answer Date Recorded Within the past 6 months we worried whether our food would run out before we got money to buy more. Never True 01/15/2025 Within the past 6 months the food we bought just didn't last and we didn't have enough money to get more. Never True Residential Stability Answer Date Recor ded What is your housing situation today? I have jill sing 01/15/2025 How many times have you move d in the past 12 months? Zero (I did not move) 01/15/2025 Paying for Meds Answer Date Recorded Do you have trouble paying for medicines? No 01/15/2025 Paying Utility Bills Answer Date Record ed Do you have trouble paying your heating or elect ricity bill? No 01/15/2025 Transportation Answer Date Recorded Has the lack of transportati on kept you from medical appointments or from getting medications? No 01/15/2025 Unemployment Answer Date Recorded Are you currently unemployed or working on a part-time or temporary basis, and looking for work? No 03/28/2021 Digital Access Answer Date Recorded No 01/15/2025 Yes 01/15/2025 Do you have reliable internet access at home? Ye s 01/15/2025 Do you have a device (e.g., phone, tablet, computer) with a working camera? Yes 01/15/2025 SNAP & WIC Answer Date Recorded Do you receive benefits from SNAP (the Supplemental Nutrition Assistance Program) or the Food Stamp Program? Yes 01/15/2025 SNAP is a free program, interested in learning m ore? Not on file 01/15/2025 Can we help you enroll in SNAP? Not on file 01/15/2025 Benefits received from WIC? Not on file 10/2024 WIC is a free program, interested in learning mo re? Not on file 01/15/2025 Can we help you enroll in WIC? Not on file 1 03/18/2024 Intimate Partner Violence Answer Date R ecorded Are you denied basic needs s uch as food, clothing, or medical care? No 01/15/2025 In the past 12 months have y ou been in a relationship with a person who hurts, threatens, or tries to control you? No 01/15/2025 Are you denied basic needs s uch as food, clothing, or medical care? No 01/15/2025 In the past 12 months have y ou been in a relationship with a person who hurts, threatens, or tries to control you? No 01/15/2025 Comments No Sex and Gender Information Value Date Recorded Sex Assigned at Not on file Legal Sex Female 9:32 PM EDT Gender Identity Not on file Sexual Orientation Not on file documented as of this encounter Last Filed Vital Signs Vital Sign Reading Time Taken Comments Blood Pressure 116/74 01/22/2025 10:37 AM EST Pulse 82 01/22/2025 10:37 AM EST Temperature - - Respiratory Rate 19 01/22/2025 10:37 AM EST Oxygen Saturation 97% 01/22/2025 10:37 AM EST Inhaled Oxygen Concentration - - Weight 71 kg (156 lb 9.6 oz) 01/22/2025 10:37 AM EST Height 144.8 cm (4' 9 ) 01/22/2025 10:37 AM EST Body Mass Index 33.89 01/22/2025 10:37 AM EST documented in this encounter Progress Notes * Eddy Cruz PA-C - 01/22/2025 10:40 AM EST Images from the original note were not included. ANNUAL PHYSICAL Subjective Lupe Zhou is a 55 y.o. female. History of Present Illness Patient with a past medical history of allergic rhinitis, asthma, GERD and sleep apnea who presentstoday for annual physical. Patient with a history of asthma who is on albuterol MDI as needed and Arnuity elliptica however ran out of the Arnuity Ellipta and did not have it refilled. She has only been using the Ventolin she mentions that she has been experiencing a persistent cough predominantly at night which often disrupts her. Occasional wheezing occurs during periods of increased physical activity around the house. There has been no exposure to sick individuals recently. Albuterol is used as a rescue inhaler. Patient with a history of low back pain and cervical radiculopathy who has undergone numerous x-rays and a cervical spine MRI back in December 2023 which revealed multilevel cervical spondylosis (which means some inflammation due possible arthritis) C4-C7 which results in central spinal canal stenosis at C4C5 (narrowing of the canal) and lesser at the C5C6- there is no cord compression, swelling,or myelopathy (meaning spinal cord compression resulting in nerve dysfunction) noted. Patient was referred to [facility] who has her currently on Flexeril 10 mg p.o. 3 times daily as needed muscle spasms and gabapentin 600 mg twice daily. This does provide some relief of her symptoms. Patient with a history of reflux which is well-controlled on Pepcid 20 mg p.o. twice daily. She states that she only takes the medication when needed and tries to avoid spicy or acidic foods. Irregular menstrual cycles are reported, with one cycle lasting nearly a month in 11/2024. No hot flashes, mood swings, or fatigue are noted. Weight gain is reported, currently at 156 pounds, up froma previous weight of 115 pounds. Increased food intake, particularly during periods of anxiety, andlack of exercise are attributed to the weight gain. No gym membership is held, and physical activity is primarily light and around the house. Regular dental check-ups are maintained every six months, and an upcoming eye exam is scheduled for04/2025. Colonoscopy was noted in 2024 Review of Systems Constitutional: Positive for unexpected weight change. Respiratory: Positive for cough. Genitourinary: Negative for problems with urination, pain with intercourse and blood in urine. Neurological: Negative for dizziness and headaches. Skin: Negative for persistent rash and breast concerns. Past Medical History: Diagnosis Date Allergic rhinitis Asthma Gastroesophageal reflux disease Sleep apnea cpap on back order Past Surgical History: Procedure Laterality Date BIOPSY BREAST Right 05/28/2024 Performed by Brandy Archibald MD at [facility] OR BREAST NEEDLE BIOPSY Left 07/2021 benign. top hat. 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 [employer] Smokes tobacco half pack daily Occasional alcohol No drug use GYNECOLOGICAL HISTORY: Last Menstrual Period: 11/2024 Duration: Nearly a month in 11/2024 Frequency and Flow: Irregular Family history reviewed and updated Medications acetaminophen (TYLENOL) 325 mg tablet 650 mg, Oral, Every 4 hours PRN albuterol (VENTOLIN HFA) 90 mcg/actuation inhaler cetirizine (ZYRTEC) 10 MG tablet 10 mg, Oral, Every morning cyclobenzaprine (FLEXERIL) 10 MG tablet famotidine (PEPCID) 20 MG tablet 20 mg, Oral, 2 times daily fluticasone furoate (ARNUITY ELLIPTA) 100 mcg/actuation DsDv 1 puff, Inhalation, Daily gabapentin (NEURONTIN) 300 MG capsule 300 mg, Oral ibuprofen (ADVIL,MOTRIN) 600 MG tablet 600 mg, Oral, Every 8 hours PRN inhaler spacing device (AEROCHAMBER,BREATHERITE) Spcr 11/06/2023 1:01 PM 2024 8:56 PM 01/15/2025 2:55 PM PHQ Depression Screening Score Little interest or pleasure in doing things Several days Several days Not at all Feeling down, depressed, or hopeless Several days Several days Not at all 03/28/2021 11:39 AM 07/07/2022 11:06 AM 11/06/2023 12:58 PM 2024 8:55 PM 01/15/2025 2:53 PM PROMS CONSTANCE-2/7 Feeling nervous, anxious or on edge Not at all Several days Several days Several days Nearly every day Not being able to stop or control worrying Not at all Several days Several days More than half the days Several days PROMs Generalized Anxiety Disorder Screening Score (CONSTANCE-2) 0 (Negative) 2 (Negative) 2 (Negative) 3(Positive (reflex)) 4 (Positive (reflex)) Worrying too much about different things Several days Several days Feeling afraid as if something awful might happen Several days Not at all Trouble relaxing Several days Not at all Becoming easily annoyed or irritable Several days Several days Being so restless that it is hard to sit still Several days Not at all PROMs Generalized Anxiety Disorder Total Score (CONSTANCE-7) 8 (Mild anxiety) 6 (Mild anxiety) Objective Physical Exam Vitals: 01/22/25 1037 BP: 116/74 BP Location: Right arm Patient Position: Sitting Cuff Size: Large Pulse: 82 Resp: 19 SpO2: 97% Weight: 71 kg (156 lb 9.6 oz) Height: 144.8 cm (4' 9 ) Gen: Alert, pleasant and cooperative, no acute distress. HEENT: Atraumatic, normocephalic. PERRL. No gross hearing deficits noted. Mucous membranes moist. Neck supple and symmetrical. No palpable cervical adenopathy. Skin: [place], warm, dry. No visible rashes, ulcers or lesions. Lungs clear to auscultation bilaterally without accessory breath sounds or increased respiratory effort. CV: RRR, no murmurs, rubs, gallops appreciated. Abd: Soft, nontender, nondistended. No rebound, no guarding, no CVA tenderness Ext: No gross deformities. Moving all extremities comfortably. Equal strength bilaterally. Extremities well perfused without clubbing or cyanosis. Neuro: CN II-XII grossly intact, no strength deficits. Alert and oriented x 3. Normal speech and language. Memory intact. Mood appropriate. Results Labs - Electrolytes: Sodium is 140, potassium is 4 - Kidney Function: BUN is 9, creatinine is 0.59 - Liver Function: AST is 21, ALT is 17 - Lipid Panel: Triglycerides are 114, total cholesterol is 209, LDL is 135, HDL is 51 - Thyroid Function: Thyroid level is 0.84 Assessment & Plan Assessment & Plan Breast cancer screening by mammogram Patient with a history of breast abscess who had been seen and followed by surgery. Her last mammogram was back in February 2024. She is due. I have placed an order for diagnostic bilateral mammogram she would like to have this completed at [facility]. Routine general medical examination at a health care facility Patient underwent laboratory data prior to her office visit which was discussed during the appointment. She is up-to-date with her colonoscopy Mammogram order placed Annual physical 1 year Gastroesophageal reflux disease without esophagitis Her GERD is well-managed with Pepcid 20 mg p.o. twice daily which will be continued Cervical radiculopathy Patient has chronic back pain which is located not only in the cervical but lumbar regions. cervical spine MRI back in December 2023 which revealed multilevel cervical spondylosis (which means some inflammation due possible arthritis) C4-C7 which results in central spinal canal stenosis at C4C5 (jake rowing of the canal) and lesser at the C%C^- there is no cord compression, swelling, or myelopathy (meaning spinal cord compression resulting in nerve dysfunction) noted. Patient was referred to [facility] who has her currently on Flexeril 10 mg p.o. 3 times daily as needed muscle spasms and gabapentin 600 mg twice daily. She will continue to this current regimen and continue to follow-up with [facility] Mild persistent asthma without complication Patient with a history of asthma who is on albuterol MDI as needed and Arnuity elliptica however ran out of the Arnuity Ellipta and did not have it refilled. She has been experiencing a cough which is nonproductive at night. However on physical exam she is noted to not have any wheezing therefore Jerome not feel that she needs steroids at this time. However she does need to be placed back on her maintenance inhaler. - Arnuity Ellipta 1 puff daily sent to pharmacy -Patient to continue albuterol MDI. I personally spent a total of 44 minutes on care for this patient on the date of the encounter. This includes [id number] time during the visit as well as non [id number] time spent on chart review, documentation, and care coordination. I obtained verbal consent from the patient or their proxy to record this visit for purposes of producing a draft of the encounter documentation. Eddy Cruz PA-C documented in this encounter Miscellaneous Notes * Assessment & Plan Note - Eddy Cruz PA-C - 01/22/2025 12:17 PM EST Associated Problem(s): Asthma Patient with a history of asthma who is on albuterol MDI as needed and Arnuity elliptica however ran out of the Arnuity Ellipta and did not have it refilled. She has been experiencing a cough which is nonproductive at night. However on physical exam she is noted to not have any wheezing therefore Jerome not feel that she needs steroids at this time. However she does need to be placed back on her maintenance inhaler. - Arnuity Ellipta 1 puff daily sent to pharmacy -Patient to continue albuterol MDI. * Assessment & Plan Note - Eddy Cruz PA-C - 01/22/2025 11:22 AM EST Associated Problem(s): Cervical radiculopathy Patient has chronic back pain which is located not only in the cervical but lumbar regions. cervical spine MRI back in December 2023 which revealed multilevel cervical spondylosis (which means some inflammation due possible arthritis) C4-C7 which results in central spinal canal stenosis at C4C5 (jake rowing of the canal) and lesser at the C%C^- there is no cord compression, swelling, or myelopathy (meaning spinal cord compression resulting in nerve dysfunction) noted. Patient was referred to [facility] who has her currently on Flexeril 10 mg p.o. 3 times daily as needed muscle spasms and gabapentin 600 mg twice daily. She will continue to this current regimen and continue to follow-up with [facility] * Assessment & Plan Note - Eddy Cruz PA-C - 01/22/2025 11:22 AM EST Associated Problem(s): GERD (gastroesophageal reflux disease) Her GERD is well-managed with Pepcid 20 mg p.o. twice daily which will be continued * Assessment & Plan Note - Eddy Cruz PA-C - 01/22/2025 11:22 AM EST Associated Problem(s): Routine general medical examination at a health care facility Patient underwent laboratory data prior to her office visit which was discussed during the appointment. She is up-to-date with her colonoscopy Mammogram order placed Annual physical 1 year * Assessment & Plan Note - Eddy Cruz PA-C - 01/22/2025 11:21 AM EST Associated Problem(s): Breast cancer screening by mammogram Patient with a history of breast abscess who had been seen and followed by surgery. Her last mammogram was back in February 2024. She is due. I have placed an order for diagnostic bilateral mammogram she would like to have this completed at [facility]. documented in this encounter Plan of Treatment Upcoming Encounters Date Type Department Care Team (Late st Contact Info) Description 01/27/2026 10:40 AM EST Office Visit [facility] Care Clinic [address] [place] [address] Eddy Cruz PA-C [address] [place] [address] [email or web address] documented as of this encounter Procedures Procedure Name Priority Date/Time Associated Diagnosis Comments BI MAMMOGRAM DIAGNOSTIC (BILATERAL) Routine 01/22/2025 11:08 AM EST Breast cancer screening by mammogram documented in this encounter Visit Diagnoses Diagnosis Routine general medical examination at a health care facility- Primary Breast cancer screening by mammogram Gastroesophageal reflux disease without esophagitis Esophageal reflux Cervical radiculopathy Brachial neuritis or radiculitis nos Mild persistent asthma without complication documented in this encounter Additional Health Concerns Assessment Noted Time PHQ-9 Depression Total Score: 7 07/08/19 23 11:06 AM EDT PHQ-2 Depression Total Score: 0 01/16/20 25 2:55 PM EST documented as of this encounter Care Teams Skin Care Technician Relationship Specialty Start Date End Date Eddy Cruz PA-C [address] [place] [address] [email or web address] PCP - General Physician Diving Instructor 09/02/23 Luther Bertrand DO [address] [place] [address], [address] [place] [address] [email or web address] Allergy and Immunology 01/17/24 Jordan Heredia MD [address] [place] [address] Orthopedic Surgery 02/07/24 Uriel Blanco MD [address] [place] [address] [email or web address] Insurance Assigned Provider 12/22/24 documented as of this encounter Additional Source Comments The information contained in this document represents components of the legal health record. It is not the complete legal health record.[facility]
[2025-01-27 10:25] VITALS: BP 159/85; PULSE 113; RESP 18; TEMP 38.3; O2SAT 96; BMI 34.1
--- OUTSIDE RECORDS SUMMARY | 2025-01-27 10:36 | XMS_ITS | Encounter Summary ---
Author Organization [facility] Address [address] [facility] [address] [place] [address] Phone Care Team Providers Care Electrical Instrument Repairer Name Role Phone Eddy Cruz PA-C Primary Care Provider [phone] Luther Bertrand DO Unavailable [phone] Jordan Heredia MD Unavailable [phone] Uriel Blanco MD Unavailable Encounter Details Date Type Department Care Team (Late st Contact Info) Description 01/24/2025 Orders Only [facility] [address] [place] [address] Provider, MD Emil [address] [place] [id number] Social History Tobacco Use Types Packs/Day [...] high school, GED, job training, learning the Belizean language, technical skills, or developing parenting skills)? [...] Description 01/27/2026 10:40 AM EST Office Visit [facility] [address] [place], [place] [phone] Eddy Cruz PA-C [address] [place] [address] [email or web address] documented as of this encounter Procedures Procedure Name Priority Date/Time Associated Diagnosis Comments OUTSIDE IMAGING Routine 01/24/2025 12:43 PM EST documented in this encounter Results * Outside Imaging Report Only (01/24/2025 12:43 PM EST) us Historical Provider IMG XR CHEST Final Res ult documented in this encounter Visit Diagnoses Not on filedocumented in this encounter Additional Health Concerns Assessment Noted Time PHQ-9 Depression Total Score: 7 07/08/19 23 11:06 AM EDT PHQ-2 Depression Total Score: 0 01/16/20 25 2:55 PM EST documented as of this encounter Care Teams Electrical Instrument Repairer Relationship Specialty Start Date End Date Eddy Cruz PA-C [address] [place] [address] [email or web address] PCP - General Physician Gardener 09/02/23 Luther Bertrand DO [address] [place] [address], [address] [place] [address] [email or web address] Allergy and Immunology 01/17/24 Jordan Heredia MD [address] [place] [address] Orthopedic Surgery 02/07/24 Uriel Blanco MD [address] [place] [id number] [email or web address] Insurance Assigned Provider 12/22/24 documented as of this encounter Additional Source Comments The information contained in this document represents components of the legal health record. It is not the complete legal health record.[facility]
--- OUTSIDE RECORDS SUMMARY | 2025-01-27 10:36 | XMS_ITS | Encounter Summary ---
Author Organization [facility] Address [address] [facility] [address] [place] [address] Phone Care Team Providers Care Fiscal Clerk Name Role Phone Eddy Cruz PA-C Primary Care Provider [phone] Luther Bertrand DO Unavailable [phone] Jordan Heredia MD Unavailable [phone] Uriel Blanco MD Unavailable Encounter Details Date Type Department Care Team (Late st Contact Info) Description 01/18/2024 Procedure Pass [facility], [address] [id number] Social History Tobacco Use Types Packs/Day Years [...] high school, GED, job training, learning the Japanese language, technical skills, or developing parenting skills)? [...] Description 01/27/2026 10:40 AM EST Office Visit [facility] [address] [place], [place] [phone] Eddy Cruz PA-C [address] [place] [address] [email or web address] documented as of this encounter Visit Diagnoses Not on filedocumented in this encounter Additional Health Concerns Infection Onset Date Last Indicated Resolved Time COVID-19 03/16/2024 03/16/2024 04/06/2024 1:21 AM EST Assessment Noted Time PHQ-9 Depression Total Score: 7 07/08/19 23 11:06 AM EDT PHQ-2 Depression Total Score: 2 01/10/20 24 8:56 PM EST documented as of this encounter Care Teams Fiscal Clerk Relationship Specialty Start Date End Date Eddy Cruz PA-C [address] [place], [place] [email or web address] PCP - General Physician Shotgun Shell Loading Machine Operator 09/02/23 Luther Bertrand DO [address] [place] [address], [address] [address] [email or web address] [email or web address] and Immunology 01/17/24 Jordan Heredia MD [address] [place] [address] Orthopedic Surgery 02/07/24 Uriel Blanco MD [address] [place] [address] [email or web address] Insurance Assigned Provider 12/22/24 documented as of this encounter Additional Source Comments The information contained in this document represents components of the legal health record. It is not the complete legal health record.[facility]
--- OUTSIDE RECORDS SUMMARY | 2025-01-27 10:36 | XMS_ITS | Clinical Summary ---
Author Organization [employer] Address [address] [facility] [address] [place] [address] Care Team Providers Care Guzzler Builder Name Role Phone Unavailable Primary Care Provider [...] Most Recently Relevant to Health Maintenance Insurance [facility] MEDICAID STAND ADULT
--- OUTSIDE RECORDS SUMMARY | 2025-01-27 10:36 | XMS_ITS | Encounter Summary ---
Author Organization [facility] Address [address] [place] [address] Phone Care Team Providers Care Ribbon Hanking Machine Operator Name Role Phone Eddy Cruz PA-C Primary Care Provider [phone] Luther Bertrand DO Unavailable [phone] Jordan Heredia MD Unavailable [phone] Uriel Blanco MD Unavailable Reason for Visit * Reason Onset Date Comments Medication Prior Authorization 01/22/2025 A jose rowland Encounter Details Date Type Department Care Team (Late st Contact Info) Description 01/22/2025 Telephone [facility] [address] [place], [place] [phone] Casanova, Sean [address] [place] [address] [email or web address] Medication Prior Authorization (Arnuity ellipta) Social History [...] Description 01/27/2026 10:40 AM EST Office Visit [facility] [address] [place] [address] Eddy Cruz PA-C [address] [place] [email or web address] documented as of this encounter Visit Diagnoses Not on filedocumented in this encounter Additional Health Concerns Assessment Noted Time PHQ-9 Depression Total Score: 7 07/08/19 23 11:06 AM EDT PHQ-2 Depression Total Score: 0 01/16/20 25 2:55 PM EST documented as of this encounter Care Teams Ribbon Hanking Machine Operator Relationship Specialty Start Date End Date Eddy Cruz PA-C 40 [place] [address] PCP - General Physician Cream Cheese Maker 09/02/23 Luther Bertrand DO [address] [place] [address], [address] [place] [address] [email or web address] Allergy and Immunology 01/17/24 Jordan Heredia MD [address] [address] Orthopedic Surgery 02/07/24 Uriel Blanco MD 40 [place] [address] [email or web address] Insurance Assigned Provider 12/22/24 documented as of this encounter Additional Source Comments The information contained in this document represents components of the legal health record. It is not the complete legal health record.[facility]
--- OUTSIDE RECORDS SUMMARY | 2025-01-27 10:36 | XMS_ITS | Encounter Summary ---
Author Organization [facility] Address [address] [facility] [address] [place] [address] Phone Care Team Providers Care Direct Casting Operator Name Role Phone Eddy Cruz PA-C Primary Care Provider [phone] Luther Bertrand DO Unavailable [phone] Jordan Heredia MD Unavailable [phone] Uriel Blanco MD Unavailable Encounter Details Date Type Department Care Team (Late st Contact Info) Description 01/17/2024 Procedure Pass [facility], [address] [address] Social History Tobacco Use Types Packs/Day Years [...] high school, GED, job training, learning the Spanish language, technical skills, or developing parenting skills)? [...] 01/27/2026 10:40 AM EST Office Visit [facility] 40 [place], [place] [phone] Eddy Cruz PA-C 40 [place] [address] documented as of this encounter Visit Diagnoses Not on filedocumented in this encounter Additional Health Concerns Infection Onset Date Last Indicated Resolved Time COVID-19 03/16/2024 03/16/2024 04/06/2024 1:21 AM EST Assessment Noted Time PHQ-9 Depression Total Score: 7 07/08/19 23 11:06 AM EDT PHQ-2 Depression Total Score: 2 01/10/20 24 8:56 PM EST documented as of this encounter Care Teams Direct Casting Operator Relationship Specialty Start Date End Date Eddy Cruz PA-C [address] [place], [place] PCP - General Physician Nca Certified Concierge 09/02/23 Luther Bertrand DO [address] [place] [address], [address] [address] [email or web address] Allergy and Immunology 01/17/24 Jordan Heredia MD [address] [place] [address] Orthopedic Surgery 02/07/24 Uriel Blanco MD 40 [place] [address] [email or web address] Insurance Assigned Provider 12/22/24 documented as of this encounter Additional Source Comments The information contained in this document represents components of the legal health record. It is not the complete legal health record.[facility]
--- OUTSIDE RECORDS SUMMARY | 2025-01-27 10:37 | XMS_ITS | Encounter Summary ---
Author Organization [employer] [facility] Address [address] [facility] 7t [place] [address] Care Team Providers Care Hydraulic Jack Operator Name Role Phone Unavailable Primary Care Provider Unavailabl e Encounter Details Date Type Department Care Team (Late st Contact Info) Description 05/05/2022 Abstract [facility] ADULT DENTAL [address] [place] [address] Georgi, Jessica [address] [place] [address] Social History Tobacco Use Types Packs/Day Years [...]
--- OUTSIDE RECORDS SUMMARY | 2025-01-27 10:37 | XMS_ITS | Encounter Summary ---
Author Organization [facility] Address [address] [facility] [address] [place] [address] Phone Care Team Providers Care Mussel Opener Name Role Phone Eddy Cruz PA-C Primary Care Provider [phone] Luther Bertrand DO Unavailable [phone] Jordan Heredia MD Unavailable [phone] Uriel Blanco MD Unavailable Encounter Details Date Type Department Care Team (Late st Contact Info) Description 05/28/2024 Procedure Pass [place] Admitting Dept - Virtual Department 30 [place] [address] Social History Tobacco Use Types Packs/Day Years [...] high school, GED, job training, learning the Arabic language, technical skills, or developing parenting skills)? [...] Description 01/27/2026 10:40 AM EST Office Visit [facility] 40 [place], [place] [phone] Eddy Cruz PA-C 40 [place] [address] [email or web address] documented as of this encounter Visit Diagnoses Not on filedocumented in this encounter Additional Health Concerns Assessment Noted Time PHQ-9 Depression Total Score: 7 07/08/19 23 11:06 AM EDT PHQ-2 Depression Total Score: 2 01/10/20 24 8:56 PM EST documented as of this encounter Care Teams Mussel Opener Relationship Specialty Start Date End Date Eddy Cruz PA-C 40 [place] [address] [email or web address] PCP - General Physician Vice President Lending 09/02/23 Luther Bertrand DO [address] [place] [address], [address] [place], [place] [id number] [email or web address] Allergy and Immunology 01/17/24 Jordan Heredia MD [address] [place] [address] Orthopedic Surgery 02/07/24 Uriel Blanco MD [address] [place] [id number] Insurance Assigned Provider 12/22/24 documented as of this encounter Additional Source Comments The information contained in this document represents components of the legal health record. It is not the complete legal health record.[facility]
--- OUTSIDE RECORDS SUMMARY | 2025-01-27 10:37 | XMS_ITS | Encounter Summary ---
Author Organization [email or web address] [facility] Address [address] [place] [address] 7 [place] [address] Care Team Providers Care Rug Inspector Name Role Phone Unavailable Primary Care Provider Unavailabl e Encounter Details Date Type Department Care Team (Latest Contact Info) Description 08/17/2018 Abstract [facility] CONVERSIONS Dental, Provider, DDS Social History [...]
--- OUTSIDE RECORDS SUMMARY | 2025-01-27 10:37 | XMS_ITS | Clinical Summary ---
Author Organization [facility] Address [address] [place] [address] Phone Care Team Providers Care Automatic Silk Screen Printer Name Role Phone Eddy Cruz PA-C Primary Care Provider [phone] Luther Bertrand DO Unavailable [phone] Jordan Heredia MD Unavailable [phone] Uriel Blanco MD Unavailable Allergies Active Allergy Reactions Criticality Noted Date Comments Animal Dander Shortness Of Breath,Sneezing,Wheezing High 03/01/2024 Grass Pollen 03/01/2024 House Dust Mite Shortness Of Breath,Sneezing,Wheezing High 03/01/2024 Mold 03/01/2024 Tree And Shrub Pollen Sneezing,Wheezing 025 [place] Pollen 03/01/2024 Medications ibuprofen (ADVIL,MOTRIN) 600 MG [...] given Td vaccination Patient is due for REPORTING ANALYST visit and has it scheduled through [facility]'s. Mammogram to be completed at [facility] GI referral for colonoscopy Breast cancer screening by mammogram 01/17/2024 Assessment & Plan (01/22/2025 11:21 AM EST): Patient with a history of breast abscess who had been seen and followed by surgery. Her last mammogram was back in February 2024. She is due. I have placed an order for diagnostic bilateral mammogram she would like to have this completed at [facility]. Assessment & Plan (01/17/2024 12:40 PM EST): Mammogram referral [facility] Cervical radiculopathy 11/07/2023 Assessment & Plan [...] nerve dysfunction) noted. Patient was [facility] who has her currently on Flexeril 10 mg p.o. 3 times daily as needed muscle spasms and gabapentin 600 mg twice daily. She will continue to this current regimen and continue to follow-up with [facility] Assessment & Plan (01/17/2024 [...] nerve dysfunction). It was recommended she see [facility] and she has an [...] like it to be done at [place] -Continue ibuprofen and Flexeril as needed Flu [...] mg p.o. daily. Patient was seen by design engineering technician and is to undergo allergy shots for [...] a tennis elbow brace that she can lemon picker at [facility]. Acute exacerbation of chronic low back pain 08/03/2018 01/22/2025 Excessive consumption of soda pop 06/30/2018 11/07/2023 Chronic right shoulder pain 06/30/2018 11/07/2023 Seasonal allergic rhinitis due to pollen 02/21/2017 11/07/2023 Tobacco use disorder 02/21/2017 024 Encounters Date Type Department Care Team Description 01/24/2025 Orders Only [facility] Care [facility] [address] [place] [address] Provider, MD Emil 01/22/2025 10:40 AM EST Office Visit [facility] Care [facility] [address] [place] [address] Eddy Cruz PA-C Routine general medical examination at a health care facility (Primary Dx); Breast cancer screening by mammogram; Gastroesophageal reflux disease without esophagitis; Cervical radiculopathy; Mild persistent asthma without complication 01/22/2025 Telephone Located Within [facility] [address] [facility] [address] Casanova, Sean Medication Prior Authorization (Arnuity ellipta) 01/11/2025 Orders Only Located Within [facility] [address] [facility] [place] [address] ProviderEmil MD 01/07/2025 Telephone Located Within [facility] 40 [facility] [place] [address] Eddy Cruz PA-C Labs 01/07/2025 Refill Located Within [facility] [address] [facility] [place] [address] Eddy Cruz PA-C Medication Refill 11/05/2024 [facility] RISK SCORES SYSTEM GENERATED External System Generated Encounter [address] [place], [place] [id number] Unknown, Unknown, from Last 3 Months Immunizations [...] high school, GED, job training, learning the Amharic language, technical skills, or developing parenting skills)? [...] Description 01/27/2026 10:40 AM EST Office Visit [facility] 40 [place] [address] Eddy Cruz PA-C 40 [place] [address] @[email or web address] Health Maintenance Due Date Last Done Comments [...] OUTSIDE IMAGING Routine 01/24/2025 12:43 PM EST BI MAMMOGRAM DIAGNOSTIC (BILATERAL) Routine 01/22/2025 11:08 [...] Relevant to Health Maintenance Results * Outside Imaging Report Only (01/24/2025 12:43 PM EST) Result [facility] IMG XR CHEST Final Res ult * Outside Lab (Non-MGB) (2025 2:20 PM EST) Result [facility] MD LAB BLOOD BKR ORDERABLES Final Result * Outside Triglycerides (2025) Triglycerides - External 114 35 - 150 mg/dL Result [facility] MD LAB BLOOD ORDERABLES Kati l Result * Outside TSH Level (2025) TSH - External 0.84 0.5 - 5 uIU/L Result [facility] MD LAB BLOOD ORDERABLES Kati l Result * Outside Potassium Level (2025) Potassium level - External 4.0 3.4 - 5.0 mmol/L Result [facility] MD LAB BLOOD ORDERABLES Kati l Result * Outside LDL (2025) LDL - External 136 50 - 250 mg/dL Result [facility] MD LAB BLOOD ORDERABLES Kati l Result * Outside Glucose,Fasting (2025) Glucose, fasting - External 99 65 - 99 mg/dL Result [facility] MD LAB BLOOD ORDERABLES Kati l Result * (ABNORMAL) Outside Serum Creatinine Level (2025) Creatinine, serum - External 0.59(A) 0.8 - 1.3 mg/dL Result [facility] MD LAB BLOOD ORDERABLES Kati l Result * Outside ALT Level (2025) ALT - External 17 5 - 30 U/L Result [facility] Provider LAB BLOOD ORDERABLES Kati l Result * (ABNORMAL) Outside Total Cholesterol (2025) Cholesterol, total - External 209(A) <=200 mg/dL Result [facility] Provider LAB BLOOD ORDERABLES Kati l Result * Outside HDL (2025) HDL - External 51 40 - 80 mg/dL Result [facility] Provider LAB BLOOD ORDERABLES Kati l Result * HM COLONOSCOPY FOR RESULT ENTRY ONLY (06/13/2024 11:19 AM EDT) Result [facility] Provider HEALTH MAINTENANCE Final Result * BI MAMMOGRAM DIAGNOSTIC WITH TOMOSYNTHESIS WITH CAD (BILATERAL) (02/28/2024 2:53 PM EST) Anatomical Region Laterality Modality Breast Left, Breast Right, Breast Bilateral Bila teral Mammography 02/28/2024 4:19 PM EST Addenda Addendum by Prema Lopez MD on 03/12/2024 3:46 PM EST ADDENDUM: Addendum: Prior outside mammograms from [facility] dated 12/17/2020, 06/29/2021 and 08/05/2022 have been received. There has been no interval change. Clinical follow-up to resolution for right breast skin abscess, currently being treated medically. BI-RADS 1 NEGATIVE Impressions 02/28/2024 4:22 PM EST 1. Outside prior mammograms are required for full evaluation, these were performed at [facility] and are being requested for comparison. [...] AM EDT) HCV NON-REACTIV E NON-REACTI VE [facility] Blood 07/07/2022 11:5 1 AM EDT 07/07/2022 11:54 AM EDT Brie Valerio NP LAB BLOOD BKR ORDERABLES Final Result [address] [address] * Pap Test (07/07/2022 12:00 AM EDT) 07/07/2022 07/08/2022 8:2 8 AM EDT Narrative SEE NARRATIVE - 07/12/2022 6:58 PM EDT [address] [address] Software Test And Validation Engineer: Roxana Aaron MD REPORTING ANALYST Cytology Report FINAL DIAGNOSIS A. PAP SMEAR [...] 59, 66, 68) Note: Testing performed by [employer] HR-HPV analysis. Clinical correlation is advised. This HPV test was performed at [facility], [address] [place] [address]. This test has been FDA approved for [facility] cervical cytology specimens. The accuracy and precision of this test for all other specimen sources has been verified in the Cytopathology Laboratory of the [facility] and has not been cleared or approved by the U.S. Food and Drug Administration. Clinical correlation is advised. CLINICAL HISTORY Date of Last Menstrual Period: 06-19-2022 Menstrual History: Kelsey-Menopausal Other Clinical Conditions: Screening Pap SPECIMEN SOURCE A: PAP SMEAR (SUREPATH) CE Patient Name: YARIEL ZHOU : 1970 (Age: 52) Sex: F [facility]: [facility] Location: [facility] Date of Collection: 07/07/2022 Date of Reported: 07/12/2022 18:58 Results to: Brie Valerio MSN, BSN Brie Valerio NP CYTOLOGY ORDERABLES Final Resul t SEE NARRATIVE from Last 3 Months or Most Recently Relevant to Health Maintenance [place] [place] [address] ACO [facility] [place] [address] [place] [address] ACO [facility] [address] O ACO AC [facility]CO O O [facility] ACO [facility] [place] [id number] ACO [facility] [place] [address] Advance Directives For more information, please contact: [phone] (9AM - 5PM Rae/[facility], Tuesday-Tuesday) * Full Code (Latest Code Status on File) Date Activated Date Inactivated Comments 05/28/2024 9:01 AM Question Answer Comments Code Status Confirmed With: Patient Care Teams Automatic Silk Screen Printer Relationship Specialty Start Date End Date Eddy Cruz PA-C [address] [place] [address] [email or web address] PCP - General Physician Salesperson Furs 09/02/23 Luther Bertrand DO [address] [place] [address], [facility] [address] [place] [address] [email or web address] Allergy and Immunology 01/17/24 Jordan Heredia MD [address] [place] [address] Orthopedic Surgery 02/07/24 Uriel Blanco MD [address] [place] [id number] Insurance Assigned Provider 12/22/24 Additional Source Comments The information contained in this document represents components of the legal health record. It is not the complete legal health record.[facility]
--- OUTSIDE RECORDS SUMMARY | 2025-01-27 10:37 | XMS_ITS | Encounter Summary ---
Author Organization [employer] [facility] Address [address] [facility] 7t [place] [address] Care Team Providers Care Robotic Weld Technician Name Role Phone Unavailable Primary Care Provider Unavailabl e Encounter Details Date Type Department Care Team (Late st Contact Info) Description 05/17/2022 Abstract [facility] ADULT DENTAL [address] [place] [address] Georgi Jessica [address] [place] [address] Social History Tobacco Use Types Packs/Day Years [...]
--- OUTSIDE RECORDS SUMMARY | 2025-01-27 10:37 | XMS_ITS | Encounter Summary ---
Author Organization [facility] Address [address] [facility] [address] [place] [address] Phone Care Team Providers Care Electromagnet Crane Operator Name Role Phone Eddy Cruz PA-C Primary Care Provider [phone] Luther Bertrand DO Unavailable [phone] Jordan Heredia MD Unavailable [phone] Uriel Blanco MD Unavailable Encounter Details Date Type Department Care Team (Late st Contact Info) Description 01/11/2025 Orders Only [facility] [address] [place] [address] Provider, MD Emil [address] [place] [address] Social History Tobacco Use Types Packs/Day [...] high school, GED, job training, learning the Czech language, technical skills, or developing parenting skills)? [...] Description 01/27/2026 10:40 AM EST Office Visit [facility] [address] [place] [address] Eddy Cruz PA-C 40 [place] [address] [email or web address] documented as of this encounter Procedures Procedure [...] Result * Outside Potassium Level (2025) Pathologist [facility] Potassium level - External 4.0 3.4 - 5.0 mmol/L Result [facility] MD LAB BLOOD ORDERABLES Kati l Result * Outside LDL (2025) [facility] LDL - External 136 50 - 250 mg/dL Result [facility] MD LAB BLOOD ORDERABLES Kati l Result * Outside TSH Level (2025) [facility] TSH - External 0.84 0.5 - 5 uIU/L Result [facility] LAB BLOOD ORDERABLES Kati l Result * Outside ALT Level (2025) [facility] ALT - External 17 5 - 30 U/L Result [facility] LAB BLOOD ORDERABLES Kati l Result * (ABNORMAL) Outside Total Cholesterol (2025) [facility] Cholesterol, total - External 209(A) <=200 mg/dL Result [facility] LAB BLOOD ORDERABLES Kati l Result * Outside Glucose,Fasting (2025) [facility] Glucose, fasting - External 99 65 - 99 mg/dL Result [facility] LAB BLOOD ORDERABLES Kati l Result * Outside HDL (2025) [facility] HDL - External 51 40 - 80 mg/dL Result [facility] MD LAB BLOOD ORDERABLES Kati l Result * (ABNORMAL) Outside Serum Creatinine Level (2025) [facility] Creatinine, serum - External 0.59(A) 0.8 - 1.3 mg/dL Result [facility] MD LAB BLOOD ORDERABLES Kati l Result * Outside Triglycerides (2025) [facility] Triglycerides - External 114 35 - 150 mg/dL Result [facility] LAB BLOOD ORDERABLES Kati l Result documented in this encounter Visit Diagnoses Not on filedocumented in this encounter Additional Health Concerns Assessment Noted Time PHQ-9 Depression Total Score: 7 07/08/19 23 11:06 AM EDT PHQ-2 Depression Total Score: 2 01/10/20 24 8:56 PM EST documented as of this encounter Care Teams Electromagnet Crane Operator Relationship Specialty Start Date End Date Eddy Cruz PA-C [address] [place] [address] [email or web address] PCP - General Physician Playground Equipment Erector 09/02/23 Luther Bertrand DO [address] [place] [address], [address] [place] [address] [email or web address] Allergy and Immunology 01/17/24 Jordan Heredia MD [address] [place] [address] Orthopedic Surgery 02/07/24 Uriel Blanco MD [address] [place] [address] [email or web address] Insurance Assigned Provider 12/22/24 documented as of this encounter Additional Source Comments The information contained in this document represents components of the legal health record. It is not the complete legal health record.[facility]
--- OUTSIDE RECORDS SUMMARY | 2025-01-27 10:37 | XMS_ITS | Encounter Summary ---
Author Organization [facility] Address [address] [place] [address] [place] [address] Phone Care Team Providers Care Test And Research Reactor Operator Name Role Phone Eddy Cruz PA-C Primary Care Provider [phone] Luther Bertrand DO Unavailable [phone] Jordan Heredia MD Unavailable [phone] Uriel Blanco MD Unavailable Encounter Details Date Type Department Care Team (Late st Contact Info) Description 04/05/2024 Prep for Surgery [facility] [address] [place] [address] Brandy Archibald MD [address] [facility], 2nd [place] [address] [email or web address] [place] [...] high school, GED, job training, learning the Armenian language, technical skills, or developing parenting skills)? [...] [facility] [address] [place], [place] [phone] Eddy Cruz PA-C 40 [place] [address] documented as of this encounter Visit Diagnoses [...] documented as of this encounter Care Teams Test And Research Reactor Operator Relationship Specialty Start Date End Date Eddy Cruz PA-C 40 [place] [address] [email or web address] PCP - General Physician Ultimate Hoops Trainer 09/02/23 Luther Bertrand DO [address] [place] [address], [address] [place], [place] [phone] [email or web address] Allergy and Immunology 01/17/24 Jordan Heredia MD [address] [place] [phone] Orthopedic Surgery 02/07/24 Uriel Blanco MD [address] [place] [address] [email or web address] Insurance Assigned Provider 12/22/24 documented as of this encounter Additional Source Comments The information contained in this document represents components of the legal health record. It is not the complete legal health record.[facility]
--- OUTSIDE RECORDS SUMMARY | 2025-01-27 10:37 | XMS_ITS | Encounter Summary ---
Author Organization [employer] [facility] Address [address] [place] [address] Care Team Providers Care Carbide Grinder Name Role Phone Unavailable Primary Care Provider Unavailabl e Encounter Details Date Type Department Care Team (Late st Contact Info) Description 05/17/2022 Abstract [facility] [address] [place] [address] Georgi Jessica [address] [place] [address] Social History Tobacco Use Types Packs/Day Years [...]
--- NOTE | 2025-01-27 11:00 | ED_ITS ---
HPI - General Adult General Chief complaint: Fever Stated complaint: throat pain and fever Time Seen by Provider: 01/27/25 11:00 Source: patient Mode of arrival: ambulatory Limitations: no limitations History of Present Illness ED Provider: Eli Byers PA-C HPI narrative: Patient is a 55 year old female with no reported medical history presenting to the emergency department today with a sore throat, fever, and body aches. Patient states that over the last 5 days she has had a sore throat, fevers, and body aches. Patient denies any other complaints at this time. Onset (ago): day(s) (5) Relieving factors: none Exacerbating factors: none Associated symptoms: fever/chills Treatments prior to arrival: none Related Data Home Medications ?Medication ?Instructions ?Recorded ?Confirmed albuterol sulfate 90 mcg/actuation 2 puff inhalation T ID 07/09/21 07/14/21 aerosol inhaler (ProAir HFA) famotidine 20 mg tablet 20 mg PO BID 07/09/21 fluticasone propionate 110 1 puff PO BID 07/09/2103/31 mcg/actuation HFA aerosol inhaler (Flovent HFA) ibuprofen 800 mg tablet 800 mg PO TID 07/09/2107/09 Previous Rx's ?Medication ?Instructions ?Recorded nirmatrelvir 300 mg (150 mg See Rx Instructions PO .CO MPLEX 01/20/23 x2)-ritonavir 100 mg tablet,dose #30 ea pack (Paxlovid) cyclobenzaprine 10 mg tablet 10 mg PO TID PRN pain, mu scle 05/19/23 spasm #15 tabs oxycodone 5 mg tablet 5 mg PO Q6H PRN pain #10 tab s 05/19/23 penicillin V potassium 500 mg 500 mg PO BID 10 days #2 0 tabs 01/27/25 tablet Allergies Allergy/AdvReac Type Severity Reaction Status Date / Time No Known Allergies Allergy Verified 01/27/25 10:27 Review of Systems 2 Constitutional: Constitutional: Reports as per HPI Eyes: Eyes: Reports as per HPI ENT: Reports as per HPI Cardiovascular: Cardiovascular: Reports as per HPI Respiratory: Respiratory: Reports as per HPI Gastrointestinal: Gastrointestinal: Reports as per HPI Genitourinary: Genitourinary: Reports as per HPI Musculoskeletal: Musculoskeletal: Reports as per HPI Integumentary/Breasts: Skin/Breast: Reports as per HPI Neurologic: Reports as per HPI Psychiatric: Psychiatric: Reports as per HPI Endocrine: Endocrine: Reports as per HPI Hematologic/Lymphatic: Hematologic/Lymphatic: Reports as per HPI Allergic/Immunologic: Allergic/Immunologic: Reports as per HPI [facility] Past Medical History Attestation statement: The following information was validated with the patient. Source: old records reviewed and nursing notes reviewed Surgical History History of 3 sections Social History Social History Alcohol intake: current Patient Tobacco Use Status: Current everyday Tobacco user Advance Directives: No Advance Directives Information Provided: No Physical Exam ED Vital Signs: Vital Signs - 24 hr 01/27/25 10:25 01/27/25 12:00 01/27/25 12:58 Temperature 100.9 F H 99.7 F 99.5 F Pulse Rate 113 H 108 H 97 Respiratory Rate 18 18 18 Blood Pressure 159/85 H 120/56 L 124/59 L Pulse Oximetry 96 96 96 Oxygen Delivery Method Room Air Room Air Room Air 01/27/25 13:42 Temperature 98 F Pulse Rate 91 Respiratory Rate 18 Blood Pressure 117/68 Pulse Oximetry 98 Oxygen Delivery Method Room Air BMI result Body Mass Index 34.1 Const General: cooperative, no acute distress, alert and awake Nutritional Appearance: well nourished Orientation/consciousness: patient oriented x3 HENMT Head: Yes normal to inspection and Yes atraumatic Ears: hearing grossly normal bilaterally and external ears normal General nose exam: Normal external nose present, no nasal discharge noted and no epistaxis Face and sinus: Yes normal facial exam, No abrasion and No laceration Mouth: Normal oral and palatal mucosa present, no drooling and no muffled voice Throat: Yes abnormal tonsil (swelling, erythema, exudates) Eyes General: appearance normal, both eyes and all related structures Periorbital: periorbital findings normal Eyelids: Yes eyelids normal Conjunctivae: conjunctivae normal Pupils: Equal, round and reactive pupils present EOM: EOMs intact bilaterally Neck Neck: Yes normal visual inspection and Yes full ROM Resp Effort & Inspection: normal respiratory effort and able to speak in complete sentences Neuro General: patient oriented x3, moves all extremities and CN's II-XI intact bilaterally Cranial nerves: Yes Equal, round and reactive pupils present Cognition (Neuro): normal cognition Extrem General: Yes normal to inspection, Yes full ROM and Yes capillary refill normal Psych Appearance: grossly normal Mental Status: mental status grossly normal Affect: normal affect Attitude: cooperative Thought process: Normal thought process present Thought content: Normal thought content present Insight: Good insight present (Psych) Medications Administered Discontinued Medications Generic Name Dose Route Start Last Admin Trade Name Ez PRN Reason Stop Dose Admin Acetaminophen 650 mg 01/27/25 10:39 01/27/25 10:49 Acetaminophen 325 Mg Tablet PO 01/27/25 10:40 650 mg ONCE ONE Administration Sodium Chloride 1,000 mls @ 999 mls/hr 01/27/25 11:45 01/27/25 11:43 Ns IV 01/27/25 12:45 999 mls/hr .Q1H1M EWA Administration Sodium Chloride 1,000 mls @ 999 mls/hr 01/27/25 12:45 01/27/25 13:19 Ns IV 01/27/25 13:45 Not Given .Q1H1M EWA Ibuprofen 400 mg 01/27/25 11:02 01/27/25 11:16 Ibuprofen 400 Mg Tablet PO 01/27/25 11:03 400 mg ONCE ONE Administration Medical Decision Making Medical Decision Making MDM Narrative: Patient is a 55 year old female with no reported medical history presenting to the emergency department today with a sore throat, fever, and body aches. Patient's physical exam was as noted in the physical exam portion of this note. Patient's blood work showed an elevated WBC count of 11.6, ESR 38, CRP 3.80. Patient's COVID-19, influenza, RSV, and strep testing was negative. Patient's mono testing was negative. Given patient's work up and physical exam finding - will treat for bacterial pharyngitis. Patient received IV fluids with PO Motrin + Tylenol which, upon re-evaluation, she stated it helped her symptoms some. I explained my physical exam findings as well as all test results to the patient. I answered all questions asked by the patient. I stressed the importance of the patient taking her medication as directed (either prescribed or as the over the counter packaging recommends). I stressed the importance of the patient following up with her primary care provider. I stressed the importance of the patient returning to the emergency department immediately if her symptoms were to worsen or if she were to develop any dizziness, shortness of breath, difficulty breathing, chest pain, blurry vision, loss of vision, nausea, vomiting, abdominal pain, fever, chills, back pain, or any other complaints. Patient verbalized agreement and understanding with this treatment plan and discharge. Differential Diagnosis Differential Diagnoses: The differential diagnosis associated with the presentation includes Strep pharyngitis Pharyngitis COVID-19 Influenza Viral illness Admission/Observation Consideration of admission/observation: Escalation of care including admission/observation considered Patient would have been admitted to the hospital had her work up had any findings where hospital admission was appropriate and her clinical presentation warranted hospital admission. Lab Data [facility] Lab Attestation statement: I reviewed the patient's lab results. My interpretation of these results are in the [facility] Rationale portion of this note. 01/27/25 11:42 01/27/25 11:42 Labs: Lab Results 01/27/25 01/27/25 01/27/25 Range/Units 10:33 11:13 11:42 WBC 11.6 H (4.8-10.8) X10*3/uL RBC 4.15 L (4.20-5.50) X10*6/uL Hgb 11.8 L (12.0-16.0) g/dl Hct 35.7 L (37.0-47.0) % MCV 86.0 (80.0-98.0) fL MCH 28.4 (27.0-33.0) pg MCHC 33.1 (31.0-35.0) g/dl RDW 12.8 (11.0-16.0) % Plt Count 213 (160-400) X10*3/uL MPV 11.0 (9.4-12.3) fL Immature Gran % (Auto) 0.4 (0.0-0.4) % Neut % (Auto) 74.8 H (45-73) % Lymph % (Auto) 15.8 L (20-40) % Nance % (Auto) 7.8 (2-11) % Eos % (Auto) 0.8 (0-4) % Baso % (Auto) 0.4 (0-2) % Lymph # (Auto) 1.8 (1.2-4.9) X10*3/uL Nance # (Auto) 0.9 (0.1-1.2) X10*3/uL Eos # (Auto) 0.1 (0.0-0.4) X10*3/uL Baso # (Auto) 0.1 (0.0-0.2) X10*3/uL Abs Immat Gran (auto) 0.05 H (0.00-0.03) X10*3/uL Absolute Neuts (auto) 8.7 H (2.0-8.3) x10*3/uL Absolute Nucleated RBC 0.000 (0.0-0.012) X10*3/uL Nucleated RBC % (auto) 0.0 (0.0-0.2) /100WBC ESR 38 H (1-30) MM/HR Sodium 137 (135-145) mmol/L Potassium 4.1 (3.3-5.1) mmol/L Chloride 109 H (96-108) mmol/L Carbon Dioxide 21 L (22-29) mmol/L Anion Gap 11 L (12-20) BUN 8 L (9-16) mg/dL Creatinine 0.63 (0.5-1.4) mg/dL Estim Creat Clear Calc 84.3 Estimated GFR > 60 Random Glucose 96 (60-115) mg/dL Calcium 8.8 (8.4-10.2) mg/dL Total Bilirubin 0.5 (0.0-1.0) mg/dL AST 33 H (5-31) U/L ALT 21 (0-31) U/L Alkaline Phosphatase 89 (39-117) U/L C-Reactive Protein 3.80 H (< or = 0.50) mg/dL Total Protein 7.2 (6.5-8.0) g/dL Albumin 4.1 (3.5-5.0) g/dL Monoscreen Negative (Negative) Influenza Type A (PCR) NEGATIVE (Negative) Influenza Type B (PCR) NEGATIVE (Negative) RSV RNA Qual (PCR) NEGATIVE (Negative) SARS-CoV-2 RNA (RT-PCR) NEGATIVE (Negative) S. pyogenes GrpA ANAYELI Cancelled Negative Tests considered The following testing was considered but not selected: I considered obtaining a CT soft tissue scan of the neck however, the patient's current clinical presentation and work up did not warrant this at this time. Prescription Management I considered prescription management with: Antibiotic (patient prescribed an antibiotic for probable bacterial pharyngitis. ) Discharge Plan Discharge Clinical Impression: Pharyngitis Patient Disposition: Home, Self-Care Instructions: Pharyngitis (ED) Additional Instructions: Your work up today was reassuring however, I am suspicious you have pharyngitis for which you have been prescribed an antibiotic. Take it as prescribed. IF you are prescribed home medications and/or you are taking over the counter medications at home - it is very important you continue to do so as prescribed / directed unless told otherwise by a healthcare provider. Follow up with your primary care provider. Do your best to stay well hydrated and rest. Return to the emergency department immediately if your symptoms worsen or if you develop any numbness, tingling, dizziness, shortness of breath, difficulty breathing, chest pain, blurry vision, loss of vision, nausea, vomiting, abdominal pain, fever, chills, back pain, or any other complaints. Please see the information below about our Patient Portal. If you are not yet enrolled in the [facility] Patient Portal, you will receive an enrollment email invitation following your visit to any [facility] setting. You may also self-enroll in the Patient Portal by visiting our website: [email or web address] The following information is required to access the Patient Portal: - Your [facility] Medical Record Number - Your personal home email address (must match what is in your electronic medical record, Registration staff can assist with this) - Name - Date of Capabilities of the Patient Portal: - Message some providers - View upcoming appointments - Access your health summary, medical history, and visit history - View current conditions and allergies - View procedure and lab results - View your medications, including guidelines, side effects, and precautions - Complete pre-appointment questionnaires requested by your provider - Ready summary reports of your office visits and procedures To access the Patient Portal Mobile [employer], follow these directions: - Search [employer] in the [employer] Store or Google Play Store - Download the [employer] - Search for [facility] - Enter your login/password Prescriptions: New penicillin V potassium 500 mg tablet 500 mg PO BID 10 Days Qty: 20 0RF No Action Paxlovid 300 mg (150 mg x 2)-100 mg tablets,dose pack See Rx Instructions .ROUTE .COMPLEX Qty: 30 0RF Rx Instructions: take TWO 150 mg tablets of nirmatrelvir with ONE 100 mg tablet of ritonavir twice daily for 5 days cyclobenzaprine 10 mg tablet 10 mg PO TID PRN (Reason: pain, muscle spasm) Qty: 15 0RF oxycodone 5 mg tablet 5 mg PO Q6H PRN (Reason: pain) Qty: 10 0RF Rx Instructions: Patient may request partial refill; Partial Fill upon patient request. albuterol sulfate [ProAir HFA] 90 mcg/actuation HFA aerosol inhaler 2 puff inhalation TID ibuprofen 800 mg tablet 800 mg PO TID Flovent HFA 110 mcg/actuation HFA aerosol inhaler 1 puff PO BID famotidine 20 mg tablet 20 mg PO BID Referrals: Eddy Cruz PA-C [Primary Care Provider, Internal Medicine] Stand Alone Forms: Work/School Release Interventions: ED Discharge Assessment Last Done: 01/27/25 13:42 Discharge Date/Time: 01/27/25 13:44 Print Language: Lao
[2025-01-27 11:14] LABS: Resp Syncy Virus RNA Qual PCR NEGATIVE (Negative); SARS COV2 PCR INHOUSE NEGATIVE (Negative)
--- NOTE | 2025-01-27 11:24 | PC.NURSE ---
Assumed care of patient. Patient medicated per the MAR. Patient resting quietly. Respirations even and unlabored.
[2025-01-27 11:28] LABS: Strep A Nucleic Acid Negative (Negative)
[2025-01-27 11:52] LABS: MANUAL DIFF FLAG NO
[2025-01-27 11:54] LABS: Hematocrit 35.7 % (37.0-47.0); Hemoglobin 11.8 g/dl (12.0-16.0); Imm Gran Abs Auto 0.05 X10*3/uL (0.00-0.03); Imm Gran Pct Auto 0.4 % (0.0-0.4); Lymphocytes Absolute Auto 1.8 X10*3/uL (1.2-4.9); Mean Corpuscular HGB Conc 33.1 g/dl (31.0-35.0); Mean Corpuscular Hemoglobin 28.4 pg (27.0-33.0); Mean Corpuscular Volume 86.0 fL (80.0-98.0); NRBC Abs Auto 0.000 X10*3/uL (0.0-0.012); NRBC Pct Auto 0.0 /100WBC (0.0-0.2); Platelet Count 213 X10*3/uL (160-400); Red Blood Count 4.15 X10*6/uL (4.20-5.50); White Blood Count 11.6 X10*3/uL (4.8-10.8)
[2025-01-27 12:00] VITALS: BP 120/56; PULSE 108; RESP 18; TEMP 37.6; O2SAT 96
[2025-01-27 12:10] LABS: Alanine Aminotransferase 21 U/L (0-31); Albumin Level 4.1 g/dL (3.5-5.0); Alkaline Phosphatase 89 U/L (39-117); Anion Gap 11 (12-20); Aspartate Amino Transferase 33 U/L (5-31); Blood Urea Nitrogen 8 mg/dL (9-16); Calcium 8.8 mg/dL (8.4-10.2); Carbon Dioxide 21 mmol/L (22-29); Chloride 109 mmol/L (96-108); Creatinine Clr Calc Pharmacy 84.3; Estimated Glomerular Filt Rate > 60; Potassium 4.1 mmol/L (3.3-5.1); Sodium 137 mmol/L (135-145); Total Protein 7.2 g/dL (6.5-8.0)
[2025-01-27 12:58] VITALS: BP 124/59; PULSE 97; RESP 18; TEMP 37.5; O2SAT 96
--- NOTE | 2025-01-27 13:19 | PC.NURSE ---
Per provider, second bag of fluid not needed. Patient to be discharged after first bag is infused. Patient resting quietly, no signs of distress. Respirations even and unlabored.
[2025-01-27 13:42] VITALS: BP 117/68; PULSE 91; RESP 18; TEMP 36.6; O2SAT 98
== END 2025-01-27 13:44 | disposition home or self-care (01) ==
PROVIDERS: Physician Assistant Medical; Emergency Provider Emergency Medicine Emergency Medical Services; PCP Physician Assistant Surgical
DX: J02.9 Acute pharyngitis, unspecified (principal); Z03.818 Encounter for observation for suspected exposure to other biological agents ruled out; F17.210 Nicotine dependence, cigarettes, uncomplicated; Z79.899 Other long term (current) drug therapy
CPT/HCPCS: 36415; 80053; 85025; 85652; 86140; 86308; 87637; 87651; 96360; 99284